=== PATIENT | male | born 1930 | race Caucasian/White ===

== ENCOUNTER → 2016-12-11 | Outpatient (CLI) | payer MEDICARE, BC, OTHER ==
[~2016-12-11] MED LIST: ASPI81TA45 PO; CITA20TA4 PO; COEN400C PO; LANTUSP SQ; LEVO.025 PO; LIVA1TAB PO; MAGN400 PO; MULT-65 PO; PRED20 PO; TRAD5TAB PO
[2016-12-11 11:56] LABS: AUTOMATED NEUTROPHIL # 3.8 TH/MM3 (1.8-7.7); BASOPHIL % 0.3 % (0.0-2.0); EOSINOPHIL # 0.1 TH/MM3 (0-0.4); EOSINOPHIL % 2.1 % (0.0-4.0); HEMATOCRIT 38.4 % (39.0-51.0); LYMPH % 27.2 % (9.0-44.0); LYMPHOCYTE # 1.7 TH/MM3 (1.0-4.8); MEAN CELL VOLUME 92.3 FL (80.0-100.0); MEAN CORPUSCULAR HEMOGLOBIN 30.6 PG (27.0-34.0); MEAN CORPUSCULAR HGB CONC 33.1 % (32.0-36.0); MONO % 9.2 % (0.0-8.0); NEUT % 61.2 % (16.0-70.0); PLATELET COUNT 181 TH/MM3 (150-450); RED BLOOD COUNT 4.16 MIL/MM3 (4.50-5.90); RED CELL DISTRIBUTION WIDTH 12.9 % (11.6-17.2); WHITE BLOOD COUNT 6.2 TH/MM3 (4.0-11.0)
[2016-12-11 12:00] LABS: HEMO FLAGS AUTO DIFF
[2016-12-11 12:41] LABS: ALT (GPT) 27 U/L (12-78); ANION GAP 7 MEQ/L (5-15); AST (GOT) 19 U/L (15-37); BICARBONATE 29.3 MEQ/L (21.0-32.0); BLOOD UREA NITROGEN 19 MG/DL (7-18); CHLORIDE 102 MEQ/L (98-107); GLOMERULAR FILTRATION RATE 63 ML/MIN (>89); GLUCOSE,FASTING 111 MG/DL (74-99); POTASSIUM 4.2 MEQ/L (3.5-5.1); SODIUM (NA) 138 MEQ/L (136-145)
[2016-12-11 12:45] LABS: SCAN/DIFF AUTO DIFF CONFIRMED
[2016-12-11 12:51] LABS: ALKALINE PHOSPHATASE 58 U/L (45-117); HDL CHOLESTEROL 42.4 MG/DL (40.0-60.0); LDL CHOLESTEROL 49 MG/DL (0-99); TOTAL BILIRUBIN ADULT 0.6 MG/DL (0.2-1.0)
[2016-12-11 18:40] LABS: HEMOGLOBIN A1a 1.3 %; HEMOGLOBIN A1b 1.7 %; HEMOGLOBIN Ao 84.1 %; HEMOGLOBIN LA1C 1.9 %; HEMOGLOBIN P3 3.8 %
== END ==
LOC: ELAB 08:37
PROVIDERS: ATTEND Family Medicine
DX: E03.8 Other specified hypothyroidism (principal); E11.65 Type 2 diabetes mellitus with hyperglycemia; E78.2 Mixed hyperlipidemia; I25.10 Atherosclerotic heart disease of native coronary artery without angina pectoris
CPT/HCPCS: 36415; 80053; 80061; 83036; 84443; 85025

== ENCOUNTER → 2017-03-19 | Outpatient (CLI) | payer MEDICARE, BC, OTHER ==
[2017-03-19 12:53] LABS: FREE T4 0.75 NG/DL (0.76-1.46)
== END ==
LOC: ELAB 10:08
PROVIDERS: ATTEND Family Medicine
DX: E03.8 Other specified hypothyroidism (principal)
CPT/HCPCS: 36415; 84439; 84443

== ENCOUNTER → 2017-06-09 | Outpatient (CLI) | payer MEDICARE, BC, OTHER ==
[2017-06-09 12:04] LABS: AUTOMATED NEUTROPHIL # 4.9 TH/MM3 (1.8-7.7); BASOPHIL % 0.2 % (0.0-2.0); EOSINOPHIL # 0.2 TH/MM3 (0-0.4); EOSINOPHIL % 2.4 % (0.0-4.0); HEMATOCRIT 37.4 % (39.0-51.0); HEMO FLAGS DIFF FINAL; LYMPH % 21.1 % (9.0-44.0); LYMPHOCYTE # 1.6 TH/MM3 (1.0-4.8); MEAN CELL VOLUME 93.3 FL (80.0-100.0); MEAN CORPUSCULAR HEMOGLOBIN 31.4 PG (27.0-34.0); MEAN CORPUSCULAR HGB CONC 33.7 % (32.0-36.0); NEUT % 66.3 % (16.0-70.0); PLATELET COUNT 172 TH/MM3 (150-450); RED BLOOD COUNT 4.01 MIL/MM3 (4.50-5.90); RED CELL DISTRIBUTION WIDTH 13.1 % (11.6-17.2); WHITE BLOOD COUNT 7.4 TH/MM3 (4.0-11.0)
[2017-06-09 12:26] LABS: ANION GAP 8 MEQ/L (5-15); AST (GOT) 16 U/L (15-37); BLOOD UREA NITROGEN 17 MG/DL (7-18); CHLORIDE 103 MEQ/L (98-107); GLOMERULAR FILTRATION RATE 60 ML/MIN (>89); GLUCOSE,FASTING 126 MG/DL (74-99); POTASSIUM 4.1 MEQ/L (3.5-5.1); SODIUM (NA) 138 MEQ/L (136-145)
[2017-06-09 12:36] LABS: ALKALINE PHOSPHATASE 57 U/L (45-117); ALT (GPT) 22 U/L (12-78); HDL CHOLESTEROL 40.7 MG/DL (40.0-60.0); LDL CHOLESTEROL 35 MG/DL (0-99); TOTAL BILIRUBIN ADULT 0.7 MG/DL (0.2-1.0)
[2017-06-09 12:49] LABS: HEMOGLOBIN A1a 1.7 %; HEMOGLOBIN A1b 1.7 %; HEMOGLOBIN Ao 83.4 %; HEMOGLOBIN LA1C 2.1 %
== END ==
LOC: ELAB 08:25
PROVIDERS: ATTEND Family Medicine
DX: F02.80 Dementia in other diseases classified elsewhere, unspecified severity, without behavioral disturbance, psychotic disturbance, mood disturbance, and anxiety (principal); E11.9 Type 2 diabetes mellitus without complications; E78.2 Mixed hyperlipidemia
CPT/HCPCS: 36415; 80053; 80061; 83036; 84443; 85025

== ENCOUNTER → 2017-12-09 | Outpatient (CLI) | payer MEDICARE, BC, OTHER ==
[2017-12-09 12:15] LABS: AUTOMATED NEUTROPHIL # 5.1 TH/MM3 (1.8-7.7); BASOPHIL % 0.6 % (0.0-2.0); EOSINOPHIL # 0.2 TH/MM3 (0-0.4); EOSINOPHIL % 2.7 % (0.0-4.0); HEMATOCRIT 37.7 % (39.0-51.0); HEMOGLOBIN 12.5 GM/DL (13.0-17.0); LYMPHOCYTE # 1.5 TH/MM3 (1.0-4.8); MEAN CELL VOLUME 93.3 FL (80.0-100.0); MEAN CORPUSCULAR HGB CONC 33.2 % (32.0-36.0); MEAN PLATELET VOLUME 8.7 FL (7.0-11.0); MONO % 10.4 % (0.0-8.0); MONOCYTE # 0.8 TH/MM3 (0-0.9); NEUT % 66.3 % (16.0-70.0); PLATELET COUNT 221 TH/MM3 (150-450); RED BLOOD COUNT 4.04 MIL/MM3 (4.50-5.90); RED CELL DISTRIBUTION WIDTH 13.6 % (11.6-17.2); WHITE BLOOD COUNT 7.6 TH/MM3 (4.0-11.0)
[2017-12-09 12:23] LABS: ALBUMIN 3.7 GM/DL (3.4-5.0); AST (GOT) 20 U/L (15-37); BICARBONATE 25.5 MEQ/L (21.0-32.0); BLOOD UREA NITROGEN 20 MG/DL (7-18); CALCIUM 9.3 MG/DL (8.5-10.1); CHLORIDE 105 MEQ/L (98-107); CREATININE 1.46 MG/DL (0.60-1.30); GLOMERULAR FILTRATION RATE 46 ML/MIN (>89); GLUCOSE,FASTING 139 MG/DL (74-99); SODIUM (NA) 141 MEQ/L (136-145)
[2017-12-09 12:24] LABS: ALT (GPT) 28 U/L (12-78); CHOLESTEROL 116 MG/DL (120-200)
[2017-12-09 12:34] LABS: ALKALINE PHOSPHATASE 74 U/L (45-117); CHOLESTEROL/ HDL RATIO 3.08 RATIO; HDL CHOLESTEROL 37.6 MG/DL (40.0-60.0); LDL CHOLESTEROL 62 MG/DL (0-99); TOTAL BILIRUBIN ADULT 0.3 MG/DL (0.2-1.0); TOTAL PROTEIN 7.6 GM/DL (6.4-8.2); TRIGLYCERIDES 84 MG/DL (42-150)
== END ==
LOC: ELAB 08:23
PROVIDERS: ATTEND Family Medicine
DX: E11.9 Type 2 diabetes mellitus without complications (principal); F02.80 Dementia in other diseases classified elsewhere, unspecified severity, without behavioral disturbance, psychotic disturbance, mood disturbance, and anxiety; R00.1 Bradycardia, unspecified; E03.8 Other specified hypothyroidism
CPT/HCPCS: 36415; 80053; 80061; 83036; 84443; 85025

== ENCOUNTER 2018-06-03 18:06 | Inpatient (IN) ==
[2018-06-03] MEDS ORDERED: Sod Chloride 0.9% Inj 1,000 ML IV.SIG ONE (18:38)
--- NOTE | 2018-06-03 19:01 | XR ---
EXAM DATE: 06/03/2018 6:53 PM EST AGE/SEX: 87 years / Male INDICATIONS: Dyspnea. CLINICAL DATA: This is the patient's initial encounter. Patient reports that signs and symptoms have been present for 1 day and indicates a pain score of Nonresponsive. MEDICAL/SURGICAL HISTORY: Non-responsive. Non-responsive. COMPARISON: POI, XR RIBS, RIGHT, 06/20/2016. . FINDINGS: A single AP view of the chest demonstrates the lungs to be symmetrically aerated without evidence of mass, infiltrate or effusion. The cardiomediastinal contours are unremarkable. Osseous structures a re intact. Patient is mildly rotated and there is overlying artifact from electrocardiogram leads. CONCLUSION: No acute cardiopulmonary disease. Electronically signed by: Azam Jones MD 06/03/2018 7:00 PM EST
--- NOTE | 2018-06-03 19:01 | ED ---
HPI General Chief complaint: Weakness Stated complaint: medical Time Seen by Provider: 06/03/18 18:38 History of Present Illness HPI narrative: 87-year-old male with history of dementia, diabetes, presents with his for evaluation of weakness and tachycardia. According to the who provides most of the history the patient today went to his regular aging group meeting. He returned home and was complaining of some weakness. He appeared pale. His checked his heart rate and it was elevated. Patient is currently complaining of generalized weakness, duration unknown. He is denying any headache, chest pain, shortness of breath, abdominal pain, nausea , vomiting, black or tarry stools, hematochezia. He takes a baby aspirin daily. He is not on any other blood thinning medications. He has had no recent illness. His reports that he has had a decreased appetite. No other complaints at this time. Related Data Home Medications Medication Instructions Recorded Confirmed Saccharomyces boulardii [Florastor] 250 mg PO HS 06/03/18 06/03/18 aspirin 81 mg PO QPM 06/03/18 06/03/18 bupropion HCl [Wellbutrin SR] 150 mg PO BID 06/03/18 06/03/18 calcium carbonate [Calcium 500] 500 mg PO DAILY 06/03/18 06/03/18 coenzyme Q10 [Co Q-10] 200 mg PO DAILY 06/03/18 06/03/18 ferrous sulfate [iron] 325 mg PO 3XW 06/03/18 06/03/18 insulin glargine [Lantus U-100 28 unit SUBCUT QAM 06/03/18 06/03/18 Insulin] linagliptin [Tradjenta] 5 mg PO DAILY 06/03/18 06/03/18 multivitamin 1 tab PO DAILY 06/03/18 06/03/18 omega 2-xzh-nrk-fish oil [[place]-3 1 cap PO DAILY 06/03/18 06/03/18 Fish Oil] omeprazole 20 mg PO DAILY 06/03/18 06/03/18 Allergies Allergy/AdvReac Type Severity Reaction Status Date / Time No Known Allergies Allergy Verified 06/03/18 18:28 Review of Systems ROS: all other systems reviewed are negative [facility] Medical History Medical History Dementia (Acute) Diabetes (Acute) Social History Social History Second Hand Smoke Exposure: No Smoking Status: Never smoker How Often Do You Have a Drink Containing Alcohol: Never Recent Travel in [facility] within the Last 8 Weeks: No Recent Out of Country Travel within the Last 8 Weeks: No Exam Narrative Exam Narrative: GENERAL: Pleasant well-developed well-nourished male in no acute distress. He appears pale. He is tachycardic. SKIN: Warm and dry. HEAD: Atraumatic. Normocephalic. EYES: Pupils equal and round. No scleral icterus. No injection or drainage. ENT: No nasal bleeding or discharge. Mucous membranes pink and moist. NECK: Trachea midline. No JVD. CARDIOVASCULAR: Regular rate and rhythm. No murmur appreciated. RESPIRATORY: No accessory muscle use. Clear to auscultation. Breath sounds equal bilaterally. GASTROINTESTINAL: Abdomen soft, tender to palpation in the left lower quadrant without guarding. Rectal examination reveals brown Hemoccult positive stool. MUSCULOSKELETAL: No obvious deformities. No clubbing. No cyanosis. No edema. NEUROLOGICAL: Awake and alert. No obvious cranial nerve deficits. Motor grossly within normal limits. Normal speech. PSYCHIATRIC: Appropriate mood and affect; insight and judgment normal. Procedures Hemaprompt Stool Procedural Steps Taken: specimen placed in appropriate test area, developer placed on specimen and control areas and controls appropriately positive and negative Hemaprompt Stool Result: positive Course Initial Documented Vital Signs Temperature 97.9 F 06/03/18 18:20 Pulse Rate 144 H 06/03/18 18:20 Respiratory Rate 15 06/03/18 18:20 Blood Pressure 97/54 L 06/03/18 18:20 Pulse Oximetry 96 06/03/18 18:20 Last Documented Vital Signs Temperature 97.9 F 06/03/18 18:20 Pulse Rate 138 H 06/03/18 20:55 Respiratory Rate 16 06/03/18 20:55 Blood Pressure 88/54 L 06/03/18 20:55 Pulse Oximetry 96 06/03/18 18:20 Medical Decision Making CARMEN Attestation CARMEN supervised visit: Yes Attestation: I, Dr. Hubbard, have reviewed the advance practice practitioner's documentation and am in agreement, met with the patient face to face, made the diagnosis, and the medical decision making was done by me. *My assessment and Findings: Patient seen and examined by me in addition to Jarred Peterson, 87-year-old male presents emergency department after an apparent near syncopal episode. He appears quite pale but his hemoglobin is within normal limits, somewhat hypotensive but alert and awake and is not requiring any pressors here in emerge department. After a liter and a half of normal saline bolus the patient's blood pressure and heart rate have not improved much. I reviewed his EKG and it appears to be flutter and is somewhat tachycardic in the 140s. 10 mg of Cardizem was given and the patient spontaneously converted to sinus rhythm at a rate of 68. Blood pressure still somewhat low. His troponin is mildly elevated. I think at this point the patient would do well for admission for near syncope workup with a mildly elevated troponin of 0.10. Given that he still mildly hypotensive but not requiring any pressors he would do well to go to ICU given his map is 62. Will discuss with the ship surveyor rotational moulding operator Patient also does have a positive Hemoccult. MDM Narrative Medical decision making narrative: The patient was placed on ECG monitoring pulse oximetry. He was given a liter of normal saline. Lab work, chest x-ray, CT abdomen pelvis ordered. EKG shows NSR, no ST elevation or depression, and no arrhythmias. No significant T-wave inversions. Reveals a tachyarrhythmia with a rate of 140, no apparent P waves. Regular rate. Lab work is been reviewed. On reexamination after 1 L normal saline hypotensive and tachycardic, therefore additional liter administered. At this point the patient was given 10 mg Cardizem and his heart rate improved to 60s and a repeat EKG reveals an underlying sinus rhythm with P waves present. Troponin is elevated at 0.1, may be related to rate. CT abdomen pelvis reveals no acute abnormalities. The patient's hemoglobin is currently stable but he does have a positive Hemoccult. At this point time the plan is to admit him for further treatment. Initially discussed with the ship surveyor Dr. Harman who recommends admission to the hospitalist service. Test with Dr. Pradhan is agreeable with admission. Medical Screen Exam Complete: Yes Emergency Medical Condition: Yes Differential Diagnosis Differential Diagnosis: Arrhythmia, sepsis, GI bleed, dehydration, electrolyte abnormality, orthostatic hypotension Lab Data Result diagrams: 06/03/18 18:35 06/03/18 18:35 Lab Results 06/03/18 06/03/18 06/03/18 Range/Units 18:35 18:35 18:35 WBC (4.0-11.0) th/mm3 RBC (4.50-5.90) mil/mm3 Hgb (13.0-17.0) gm/dL Hct (39.0-51.0) % MCV (80.0-100.0) fL MCH (27.0-34.0) pg MCHC (32.0-36.0) % RDW (11.6-17.2) % Plt Count (150-450) th/mm3 MPV (7.0-11.0) fL Neut % (Auto) (16.0-70.0) % Lymph % (Auto) (9.0-44.0) % [place] % (Auto) (0.0-8.0) % Eos % (Auto) (0.0-4.0) % Baso % (Auto) (0.0-2.0) % Neut # (Auto) (1.8-7.7) th/mm3 Lymph # (Auto) (1.0-4.8) th/mm3 [place] # (Auto) (0.0-0.9) th/mm3 Eos # (Auto) (0.0-0.4) th/mm3 Baso # (Auto) (0.0-0.2) th/mm3 WBC Differential Differential Comment PT 10.7 (9.8-11.6) sec INR 1.1 Ratio APTT 25.9 (23.4-31.7) sec Sodium (136-145) meq/L Potassium (3.5-5.1) meq/L Chloride (98-107) meq/L Carbon Dioxide (21.0-32.0) meq/L Anion Gap (5-15) meq/L BUN (7-18) mg/dL Creatinine (0.60-1.30) mg/dL Estimated GFR (>89) mL/min Random Glucose (74-106) mg/dL Lactic Acid (0.4-2.0) mmol/L Calcium (8.5-10.1) mg/dL Magnesium 2.1 (1.5-2.5) mg/dL Total Bilirubin (0.2-1.0) mg/dL AST (15-37) U/L ALT (12-78) U/L Alkaline Phosphatase (45-117) U/L Total Creatine Kinase 163 (39-308) U/L Troponin I (0.02-0.05) ng/mL Total Protein (6.4-8.2) g/dL Albumin (3.4-5.0) g/dL TSH (0.358-3.740) uIU/mL Blood Type A Positive Blood Type Recheck Required Antibody Screen Negative 06/03/18 06/03/18 06/03/18 Range/Units 18:35 18:35 18:35 WBC 10.6 (4.0-11.0) th/mm3 RBC 3.93 L (4.50-5.90) mil/mm3 Hgb 12.4 L (13.0-17.0) gm/dL Hct 37.2 L (39.0-51.0) % MCV 94.6 (80.0-100.0) fL MCH 31.6 (27.0-34.0) pg MCHC 33.4 (32.0-36.0) % RDW 13.7 (11.6-17.2) % Plt Count 186 (150-450) th/mm3 MPV 8.7 (7.0-11.0) fL Neut % (Auto) 76.4 H (16.0-70.0) % Lymph % (Auto) 14.5 (9.0-44.0) % [place] % (Auto) 7.7 (0.0-8.0) % Eos % (Auto) 1.3 (0.0-4.0) % Baso % (Auto) 0.1 (0.0-2.0) % Neut # (Auto) 8.1 H (1.8-7.7) th/mm3 Lymph # (Auto) 1.5 (1.0-4.8) th/mm3 [place] # (Auto) 0.8 (0.0-0.9) th/mm3 Eos # (Auto) 0.1 (0.0-0.4) th/mm3 Baso # (Auto) 0.0 (0.0-0.2) th/mm3 WBC Differential . Differential Comment Auto diff final PT (9.8-11.6) sec INR Ratio APTT (23.4-31.7) sec Sodium 134 L (136-145) meq/L Potassium 4.6 (3.5-5.1) meq/L Chloride 104 (98-107) meq/L Carbon Dioxide 22.8 (21.0-32.0) meq/L Anion Gap 7 (5-15) meq/L BUN 17 (7-18) mg/dL Creatinine 1.33 H (0.60-1.30) mg/dL Estimated GFR 51 L (>89) mL/min Random Glucose 137 H (74-106) mg/dL Lactic Acid 1.7 (0.4-2.0) mmol/L Calcium 8.1 L (8.5-10.1) mg/dL Magnesium (1.5-2.5) mg/dL Total Bilirubin 0.5 (0.2-1.0) mg/dL AST 27 (15-37) U/L ALT 21 (12-78) U/L Alkaline Phosphatase 62 (45-117) U/L Total Creatine Kinase (39-308) U/L Troponin I 0.10 H (0.02-0.05) ng/mL Total Protein 6.9 (6.4-8.2) g/dL Albumin 3.2 L (3.4-5.0) g/dL TSH (0.358-3.740) uIU/mL Blood Type Blood Type Recheck Antibody Screen 06/03/18 Range/Units 18:35 WBC (4.0-11.0) th/mm3 RBC (4.50-5.90) mil/mm3 Hgb (13.0-17.0) gm/dL Hct (39.0-51.0) % MCV (80.0-100.0) fL MCH (27.0-34.0) pg MCHC (32.0-36.0) % RDW (11.6-17.2) % Plt Count (150-450) th/mm3 MPV (7.0-11.0) fL Neut % (Auto) (16.0-70.0) % Lymph % (Auto) (9.0-44.0) % [place] % (Auto) (0.0-8.0) % Eos % (Auto) (0.0-4.0) % Baso % (Auto) (0.0-2.0) % Neut # (Auto) (1.8-7.7) th/mm3 Lymph # (Auto) (1.0-4.8) th/mm3 [place] # (Auto) (0.0-0.9) th/mm3 Eos # (Auto) (0.0-0.4) th/mm3 Baso # (Auto) (0.0-0.2) th/mm3 WBC Differential Differential Comment PT (9.8-11.6) sec INR Ratio APTT (23.4-31.7) sec Sodium (136-145) meq/L Potassium (3.5-5.1) meq/L Chloride (98-107) meq/L Carbon Dioxide (21.0-32.0) meq/L Anion Gap (5-15) meq/L BUN (7-18) mg/dL Creatinine (0.60-1.30) mg/dL Estimated GFR (>89) mL/min Random Glucose (74-106) mg/dL Lactic Acid (0.4-2.0) mmol/L Calcium (8.5-10.1) mg/dL Magnesium (1.5-2.5) mg/dL Total Bilirubin (0.2-1.0) mg/dL AST (15-37) U/L ALT (12-78) U/L Alkaline Phosphatase (45-117) U/L Total Creatine Kinase (39-308) U/L Troponin I (0.02-0.05) ng/mL Total Protein (6.4-8.2) g/dL Albumin (3.4-5.0) g/dL TSH 6.670 H (0.358-3.740) uIU/mL Blood Type Blood Type Recheck Antibody Screen Imaging Data Radiologist's impression: Chest X-Ray 06/03/18 18:38 CONCLUSION: No acute cardiopulmonary disease. Abdomen/Pelvis CT 06/03/18 19:02 CONCLUSION: 1. Unremarkable bowel gas pattern. 2. Status post cholecystectomy. Discharge Plan Discharge Disposition Patient Disposition: 30 Still Patient Discharge Condition Condition: Stable Discharge Details Diagnosis: Tachyarrhythmia, Elevated troponin, Near syncope, GI bleed Physicians Team ED Provider: Lexx Hubbard ED Midlevel Provider: Jarred Peterson Primary Care Provider: Tata Laguerre Rxs /Orders / Referrals /Forms Prescriptions: No Action multivitamin Tablet 1 tab PO DAILY RF: 0 bupropion HCl [Wellbutrin SR] 150 mg Tablet Sustained-Release 12 Hr 150 mg PO BID RF: 0 insulin glargine [Lantus U-100 Insulin] 100 unit/mL Solution 28 unit SUBCUT QAM RF: 0 aspirin 81 mg Tablet,Delayed Release (Dr/Ec) 81 mg PO QPM RF: 0 calcium carbonate [Calcium 500] 500 mg calcium (1,250 mg) Tablet 500 mg PO DAILY RF: 0 ferrous sulfate [iron] 325 mg (65 mg iron) Tablet 325 mg PO 3XW RF: 0 Saccharomyces boulardii [Florastor] 250 mg Capsule 250 mg PO HS RF: 0 coenzyme Q10 [Co Q-10] 200 mg Capsule 200 mg PO DAILY RF: 0 omeprazole 20 mg Tablet,Delayed Release (Dr/Ec) 20 mg PO DAILY RF: 0 omega 3-twq-exy-fish oil [[place]-3 Fish Oil] 910-1,400 mg Capsule 1 cap PO DAILY RF: 0 linagliptin [Tradjenta] 5 mg Tablet 5 mg PO DAILY RF: 0 Status ED Status: Admitted Patient
[2018-06-03 19:13] LABS: Baso % (Auto) 0.1 % (0.0-2.0); Eos # (Auto) 0.1 th/mm3 (0.0-0.4); Eos % (Auto) 1.3 % (0.0-4.0); Hematocrit 37.2 % (39.0-51.0); Hemoglobin 12.4 gm/dL (13.0-17.0); Lymph # (Auto) 1.5 th/mm3 (1.0-4.8); Lymph % (Auto) 14.5 % (9.0-44.0); Mean Corpuscular HGB Conc 33.4 % (32.0-36.0); Mean Corpuscular Hemoglobin 31.6 pg (27.0-34.0); Mean Corpuscular Volume 94.6 fL (80.0-100.0); Mean Platelet Volume 8.7 fL (7.0-11.0); Mono # (Auto) 0.8 th/mm3 (0.0-0.9); Mono % (Auto) 7.7 % (0.0-8.0); Neut # (Auto) 8.1 th/mm3 (1.8-7.7); Neut % (Auto) 76.4 % (16.0-70.0); Platelet Count 186 th/mm3 (150-450); Red Blood Count 3.93 mil/mm3 (4.50-5.90); Red Cell Distribution Width 13.7 % (11.6-17.2); White Blood Count 10.6 th/mm3 (4.0-11.0)
[2018-06-03] MEDS ORDERED: Sod Chloride 0.9% Inj 1,000 ML IV.SIG SCH ×2 (19:15→22:30)
[2018-06-03 19:24] LABS: Activated Partial Thrombo Time 25.9 sec (23.4-31.7); INR 1.1 Ratio; Prothrombin Time 10.7 sec (9.8-11.6)
[2018-06-03 19:36] LABS: Albumin 3.2 g/dL (3.4-5.0); Anion Gap 7 meq/L (5-15); Aspartate Aminotransferase 27 U/L (15-37); Blood Urea Nitrogen 17 mg/dL (7-18); Calcium 8.1 mg/dL (8.5-10.1); Carbon Dioxide 22.8 meq/L (21.0-32.0); Chloride 104 meq/L (98-107); Glomerular Filtration Rate 51 mL/min (>89); Glucose,Random 137 mg/dL (74-106); Magnesium 2.1 mg/dL (1.5-2.5); Potassium 4.6 meq/L (3.5-5.1); Sodium 134 meq/L (136-145)
[2018-06-03 19:39] LABS: Alanine Aminotransferase 21 U/L (12-78); Alkaline Phosphatase 62 U/L (45-117); Total Protein 6.9 g/dL (6.4-8.2)
--- NOTE | 2018-06-03 20:59 | CT ---
EXAM DATE: 06/03/2018 8:49 PM EST AGE/SEX: 87 years / Male INDICATIONS: Continuous belching. CLINICAL DATA: This is the patient's initial encounter. Patient reports that signs and symptoms have been present for 2 days and indicates a pain score of 0/10. MEDICAL/SURGICAL HISTORY: Diabetes. None. ORAL CONTRAST: No oral contrast ingested. RADIATION DOSE: 16.32 CTDI (mGy) COMPARISON: POI, CT ABDOMEN W/O CONTRAST, 06/27/2016. . TECHNIQUE: Multiple contiguous axial images were obtained through the abdomen and pelvis following b olus infusion of 90 ml Omnipaque 350 (iohexol) nonionic water-soluble contrast as a single exam dos e. No oral contrast ingested. Using automated exposure control and adjustment of the mA and/or kV ac cording to patient size, radiation dose was kept as low as reasonably achievable to obtain optimal di agnostic quality images. DICOM format image data is available electronically for review and comparis on. FINDINGS: Lower Lungs: The visualized lower lungs are clear. Liver: The liver has a homogeneous density without space-occupying lesion. There is no dilation of th e biliary tree. The patient is status post cholecystectomy. Spleen: Homogeneous density without enlargement. Pancreas: Unremarkable without mass or calcification. Kidneys: Normal in size and shape. No evidence of solid mass or hydronephrosis. There is a benign-ap pearing cyst in the right kidney. Adrenal Glands: Unremarkable. Aorta: The aorta and proximal iliac vessels are grossly unremarkable without aneurysmal dilation. Bowel/Mesentery: No oral contrast was given limiting the sensitivity. There is a moderate-sized air- fluid level in the stomach. Gas and stool is noted segmentally in the colon. There is no focal inflam matory change. Is no free air or fluid. Abdominal Wall: Intact. Retroperitoneum: No evidence of adenopathy in the retrocrural, para-aortic, or deep pelvic regions. Bladder: Contours are smooth. Reproductive Organs: No abnormal masses or calcifications seen. Inguinal: The inguinal region is unremarkable without evidence of adenopathy. Bony Structures: Unremarkable. CONCLUSION: 1. Unremarkable bowel gas pattern. 2. Status post cholecystectomy. Electronically signed by: Azam Jones MD 06/03/2018 8:58 PM EST
[2018-06-04 00:43] LABS: Bilirubin,Urine Negative (Negative); Clarity,Urine Clear (Clear); Color,Urine Yellow (Yellw/Straw); Glucose,Urine (UA) Negative (Negative); Leukocyte Esterase,Urine Negative (Negative); Nitrite,Urine Negative (Negative); Specific Gravity,Urine 1.021 (1.002-1.035)
[2018-06-04] MEDS ORDERED: Dextrose 50% in Water 50 ML Vial IV.PUSH PRN (01:37)
[2018-06-04] MEDS ORDERED: Acetaminophen 325 MG Tablet PO PRN (01:37)
[2018-06-04] MEDS ORDERED: Bisacodyl 10 MG Supp RECTAL PRN (01:37)
[2018-06-04 02:19] LABS: Baso # (Auto) 0.1 th/mm3 (0.0-0.2); Baso % (Auto) 0.6 % (0.0-2.0); Eos # (Auto) 0.1 th/mm3 (0.0-0.4); Eos % (Auto) 1.6 % (0.0-4.0); Hematocrit 32.2 % (39.0-51.0); Hemoglobin 10.9 gm/dL (13.0-17.0); Lymph # (Auto) 1.9 th/mm3 (1.0-4.8); Lymph % (Auto) 21.3 % (9.0-44.0); Mean Corpuscular HGB Conc 33.8 % (32.0-36.0); Mean Corpuscular Hemoglobin 32.1 pg (27.0-34.0); Mean Corpuscular Volume 94.8 fL (80.0-100.0); Mono # (Auto) 0.8 th/mm3 (0.0-0.9); Mono % (Auto) 8.9 % (0.0-8.0); Neut # (Auto) 6.1 th/mm3 (1.8-7.7); Neut % (Auto) 67.6 % (16.0-70.0); Platelet Count 190 th/mm3 (150-450); Red Cell Distribution Width 13.8 % (11.6-17.2)
[2018-06-04 02:31] LABS: Free T4 (Free Thyroxine) 0.81 ng/dL (0.76-1.46); Triiodothyronine (T3) Free 2.45 pg/mL (2.18-3.98)
[2018-06-04 02:48] LABS: Calcium 7.8 mg/dL (8.5-10.1); Carbon Dioxide 23.5 meq/L (21.0-32.0); Potassium 4.2 meq/L (3.5-5.1)
[2018-06-04 02:54] LABS: Troponin I 3.34 ng/mL (0.02-0.05)
[2018-06-04] MEDS ORDERED: Aspirin 325 MG Tablet PO ONE (03:25)
[2018-06-04] MEDS: Insulin NovoLOG Aspart Correctional Sugar Inj SQ SCH ×5 (04:15→20:38)
--- NOTE | 2018-06-04 04:21 | P.HP ---
History of Present Illness Service: [facility] Primary Care Physician: Ttaa Laguerre MD History of Present Illness: 87-year-old male with a past medical history significant for diabetes mellitus, dementia, ANTONI and hypertriglyceridemia presents to the emergency department for the evaluation of weakness and tachycardia. The patient's provides the history. She states that prior to dinner the patient was complaining of generalized weakness and he was unable to get up and walk to the dining [place]inez. She reports that he was tachycardic with a heart rate in the 140s, pale and weak. Patient denies any chest pain or shortness of breath. No abdominal pain. No nausea/vomiting/diarrhea. No focal neurologic deficits. No recent fever/chills. On arrival to the emergency department the patient was found to be in sinus tach with a heart rate of 140. He was given 1 dose of diltiazem x1 and was in normal sinus rhythm in the 60s at the time of our interview. Patient's initial troponin was 0.10, repeat 3.34. Repeat EKG showed normal sinus rhythm without ST segment elevations or depressions. Patient denies chest pain. In the emergency department the patient was weakly Hemoccult positive with brown stool. Inpatient Certification: I certify that the inpatient services were ordered in accordance with Medicare regulations governing the order. This includes certification that hospital inpatient services are reasonable and necessary and in the case of services not specified as inpatient-only under 42 CFR 419.22(n), that they are appropriately provided as inpatient services in accordance to with the 2-midnight benchmark under 43 CFR 412.3(e) Estimated Total Length of Stay (Days): 2 Plans for Post Hospital Care: Not yet determined Review of Systems All other systems reviewed negative except as stated [facility] - History History Provided By: Patient, Significant Other, Production Machine Operator / EMT - Medical History Medical History: Medical History (Last Updated 06/04/18 @ 04:15 by Sonya Pradhan MD) Dementia Diabetes Hypertriglyceridemia ANTONI (obstructive sleep apnea) - Surgical History Surgical History: Surgical History (Last Updated 06/04/18 @ 04:15 by Sonya Pradhan MD) History of appendectomy History of cholecystectomy - Family History Family History: Family History (Last Updated 06/04/18 @ 04:16 by Sonya Pradhan MD) Other Lung cancer - Tobacco History Second Hand Smoke Exposure: No Tobacco Use In Past 30 Days: No Smoking Status: Never smoker - Alcohol History How Often Do You Have a Drink Containing Alcohol: Never - Travel History Recent Travel in the [place] Within the Last 8 Weeks: No Recent Travel Out of the Country Within the Last 8 Weeks: No - Immunization History Tetanus Immunization: <5 Years Medications and Allergies Active Medications: Active Medications Acetaminophen (Tylenol) 650 mg PO Q4H PRN PRN Reason: Temp > 100.4 Al Hydroxide/Mg Hydroxide (Milk Of Magnesia Liq) 30 ml PO Q12H PRN PRN Reason: Mild Constipation Aspirin (Ecotrin) 81 mg PO QPM ROBERTA Bisacodyl (Dulcolax Supp) 10 mg RECTAL DAILY PRN PRN Reason: SEVERE CONSITIPATION Bupropion HCl (Wellbutrin Sr) 150 mg PO BID ROBERTA Calcium Carbonate (Oscal) 500 mg PO DAILY ROBERTA Dextrose (D50w Vial) 50 ml IV.PUSH UNSCH PRN PRN Reason: PER HYPOGLYCEMIA PROTOCOL Ferrous Sulfate (Ferosul) 325 mg PO MoWeFr@0900 ROBERTA Glucagon (Glucagon Inj) 1 mg OTHER PRN PRN PRN Reason: for Hypoglycemia Protocol Sodium Chloride (Ns Inj) 1,000 mls @ 70 mls/hr IV.CONT .[id number] ROBERTA Heparin Sodium/Dextrose (Heparin/D5w 25,000 U/250 Ml) 25,000 unit in 250 mls @ 9 mls/hr IV.CONT TITRATE PRN; Protocol PRN Reason: Per Protocol Insulin Aspart (Novolog Insulin Correctional Sugar Inj) 0 unit SQ ACHS AND 3AM ROBERTA; Protocol Lactulose (Lactulose Liq) 30 ml PO DAILY PRN PRN Reason: SEVERE CONSITIPATION Ondansetron HCl (Zofran Inj) 4 mg IV.PUSH Q6H PRN PRN Reason: NAUSEA OR VOMITING Pantoprazole Sodium (Protonix Inj) 40 mg IV.PUSH Q12H ROBERTA Senna/Docusate Sodium (Lakesha-Colace) 1 tab PO BID [facility] Sennosides (Senokot) 17.2 mg PO Q12H PRN PRN Reason: Moderate Constipation Sodium Chloride (Ns Flush) 2 ml IV.FLUSH BID ROBERTA Sodium Chloride (Ns Flush) 2 ml IV.FLUSH PRN PRN PRN Reason: FLUSH AFTER USING IV ACCESS Allergies Allergy/AdvReac Type Severity Reaction Status Date / Time No Known Allergies Allergy Verified 06/03/18 18:28 Home Medications Medication Instructions Recorded Confirmed Type Saccharomyces boulardii [Florastor] 250 mg PO HS 06/03/18 06/03/18 History aspirin 81 mg PO QPM 06/03/18 06/03/18 History bupropion HCl [Wellbutrin SR] 150 mg PO BID 06/03/18 06/03/18 History calcium carbonate [Calcium 500] 500 mg PO DAILY 06/03/18 06/03/18 History coenzyme Q10 [Co Q-10] 200 mg PO DAILY 06/03/18 06/03/18 History ferrous sulfate [iron] 325 mg PO 3XW 06/03/18 06/03/18 History insulin glargine [Lantus U-100 28 unit SUBCUT QAM 06/03/18 06/03/18 History Insulin] linagliptin [Tradjenta] 5 mg PO DAILY 06/03/18 06/03/18 History multivitamin 1 tab PO DAILY 06/03/18 06/03/18 History omega 0-agy-aci-fish oil [[place]-3 1 cap PO DAILY 06/03/18 06/03/18 History Fish Oil] omeprazole 20 mg PO DAILY 06/03/18 06/03/18 History Exam Vital signs: Vital Signs 06/03/18 18:20 06/03/18 19:15 06/03/18 19:30 Temperature 97.9 F Pulse Rate 144 H 136 H 138 H Respiratory Rate 15 16 16 Blood Pressure 97/54 L 87/58 L 88/54 L Pulse Oximetry 96 94 L 94 L 06/03/18 20:55 06/03/18 21:00 06/03/18 21:15 Temperature Pulse Rate 138 H 72 64 Respiratory Rate 16 14 Blood Pressure 88/54 L 84/51 L 84/51 L Pulse Oximetry 92 L 94 L 06/03/18 21:45 06/03/18 23:33 06/04/18 02:13 Temperature Pulse Rate 62 59 L 66 Respiratory Rate 14 16 16 Blood Pressure 85/50 L 89/50 L 93/55 L Pulse Oximetry 98 93 L 06/04/18 03:02 Temperature Pulse Rate 59 L Respiratory Rate 16 Blood Pressure 102/59 L Pulse Oximetry Intake & Output 06/03/18 06/03/18 06/04/18 06:59 18:59 06:59 Intake Total 3000 / 3000 Balance 3000 / 3000 Weight 74.389 kg Intake: IV 3000 / 3000 NS Inj 1,000 ML @ 1000 mls/hr 3000 / 3000 IV.SIG BOLUS ROBERTA Rx#:[id number] Narrative: Gen.: No acute distress Head: Normocephalic. Atraumatic. EENT: Pupils equal round and reactive to light. Nose without drainage. Airway intact. Throat without injection. Cardiovascular: Regular rate and rhythm. No murmurs, rubs or gallops. Respiratory: Lungs clear to auscultation bilaterally. No wheezes or rhonchi. Abdomen: Soft, nontender, nondistended. No peritoneal signs. Musculoskeletal: No gross deformities. No edema. Skin: No obvious rashes or erythema. Neuro: Sensory and motor grossly intact. Cranial nerves II through XII grossly intact. Results - Labs CBC & Chem 7: 06/04/18 02:07 06/04/18 02:07 Labs: Laboratory Results - last 24 hr 06/03/18 06/03/18 06/03/18 18:35 18:35 18:35 WBC RBC Hgb Hct MCV MCH MCHC RDW Plt Count MPV Neut % (Auto) Lymph % (Auto) [place] % (Auto) Eos % (Auto) Baso % (Auto) Neut # (Auto) Lymph # (Auto) [place] # (Auto) Eos # (Auto) Baso # (Auto) WBC Differential Differential Comment PT 10.7 INR 1.1 APTT 25.9 Sodium Potassium Chloride Carbon Dioxide Anion Gap BUN Creatinine Estimated GFR POC Glucose Random Glucose Lactic Acid Calcium Magnesium 2.1 Total Bilirubin AST ALT Alkaline Phosphatase Total Creatine Kinase 163 Troponin I Total Protein Albumin TSH Free T4 Free T3 Urine Color Urine Clarity Urine pH Ur Specific [place] Urine Protein Urine Glucose (UA) Urine Ketones Urine Occult Blood Urine Nitrate Urine Bilirubin Urine Urobilinogen Ur Leukocyte Esterase Urine RBC Urine WBC Micro UA Comment Ur Microscopic Review Urine Culture Comments Blood Type A Positive Blood Type Recheck Required Antibody Screen Negative 06/03/18 06/03/18 06/03/18 18:35 18:35 18:35 WBC 10.6 RBC 3.93 L Hgb 12.4 L Hct 37.2 L MCV 94.6 MCH 31.6 MCHC 33.4 RDW 13.7 Plt Count 186 MPV 8.7 Neut % (Auto) 76.4 H Lymph % (Auto) 14.5 [place] % (Auto) 7.7 Eos % (Auto) 1.3 Baso % (Auto) 0.1 Neut # (Auto) 8.1 H Lymph # (Auto) 1.5 [place] # (Auto) 0.8 Eos # (Auto) 0.1 Baso # (Auto) 0.0 WBC Differential . Differential Comment Auto diff final PT INR APTT Sodium 134 L Potassium 4.6 Chloride 104 Carbon Dioxide 22.8 Anion Gap 7 BUN 17 Creatinine 1.33 H Estimated GFR 51 L POC Glucose Random Glucose 137 H Lactic Acid 1.7 Calcium 8.1 L Magnesium Total Bilirubin 0.5 AST 27 ALT 21 Alkaline Phosphatase 62 Total Creatine Kinase Troponin I 0.10 H Total Protein 6.9 Albumin 3.2 L TSH Free T4 Free T3 Urine Color Urine Clarity Urine pH Ur Specific [place] Urine Protein Urine Glucose (UA) Urine Ketones Urine Occult Blood Urine Nitrate Urine Bilirubin Urine Urobilinogen Ur Leukocyte Esterase Urine RBC Urine WBC Micro UA Comment Ur Microscopic Review Urine Culture Comments Blood Type Blood Type Recheck Antibody Screen 06/03/18 06/03/18 06/04/18 18:35 18:35 00:32 WBC RBC Hgb Hct MCV MCH MCHC RDW Plt Count MPV Neut % (Auto) Lymph % (Auto) [place] % (Auto) Eos % (Auto) Baso % (Auto) Neut # (Auto) Lymph # (Auto) [place] # (Auto) Eos # (Auto) Baso # (Auto) WBC Differential Differential Comment PT INR APTT Sodium Potassium Chloride Carbon Dioxide Anion Gap BUN Creatinine Estimated GFR POC Glucose Random Glucose Lactic Acid Calcium Magnesium Total Bilirubin AST ALT Alkaline Phosphatase Total Creatine Kinase Troponin I Total Protein Albumin TSH 6.670 H Free T4 0.81 Free T3 2.45 Urine Color Yellow Urine Clarity Clear Urine pH 6.0 Ur Specific [place] 1.021 Urine Protein Negative Urine Glucose (UA) Negative Urine Ketones Negative Urine Occult Blood Negative Urine Nitrate Negative Urine Bilirubin Negative Urine Urobilinogen Less than 2 Ur Leukocyte Esterase Negative Urine RBC Less than 1 Urine WBC 1 Micro UA Comment Culture not ind Ur Microscopic Review Not Reportable Urine Culture Comments Culture not ind Blood Type Blood Type Recheck Antibody Screen 06/04/18 06/04/18 06/04/18 02:07 02:07 03:28 WBC 9.0 RBC 3.40 L Hgb 10.9 L Hct 32.2 L MCV 94.8 MCH 32.1 MCHC 33.8 RDW 13.8 Plt Count 190 MPV 9.0 Neut % (Auto) 67.6 Lymph % (Auto) 21.3 [place] % (Auto) 8.9 H Eos % (Auto) 1.6 Baso % (Auto) 0.6 Neut # (Auto) 6.1 Lymph # (Auto) 1.9 [place] # (Auto) 0.8 Eos # (Auto) 0.1 Baso # (Auto) 0.1 WBC Differential . Differential Comment Auto diff final PT INR APTT Sodium 139 Potassium 4.2 Chloride 108 H Carbon Dioxide 23.5 Anion Gap 8 BUN 16 Creatinine 1.15 Estimated GFR 60 L POC Glucose 94 Random Glucose 93 Lactic Acid Calcium 7.8 L Magnesium Total Bilirubin AST ALT Alkaline Phosphatase Total Creatine Kinase 241 Troponin I 3.34 H* Total Protein Albumin TSH Free T4 Free T3 Urine Color Urine Clarity Urine pH Ur Specific [place] Urine Protein Urine Glucose (UA) Urine Ketones Urine Occult Blood Urine Nitrate Urine Bilirubin Urine Urobilinogen Ur Leukocyte Esterase Urine RBC Urine WBC Micro UA Comment Ur Microscopic Review Urine Culture Comments Blood Type Blood Type Recheck Antibody Screen - Imaging Impressions Chest X-Ray 06/03/18 18:38 CONCLUSION: No acute cardiopulmonary disease. Abdomen/Pelvis CT 06/03/18 19:02 CONCLUSION: 1. Unremarkable bowel gas pattern. 2. Status post cholecystectomy. Caprini VTE Risk Assessment Caprini VTE Risk Assessment: Moderate/High Risk (score >= 2) Caprini Risk Assessment Model: Point Value = 1 Point Value = 2 Point Value = 3 Point Value = 5 Age 41-60 Minor surgery BMI > 25 kg/m2 Swollen legs Varicose veins or History of unexplained or recurrent spontaneous Oral contraceptives or hormone replacement Sepsis (< 1 month) Serious lung disease, including pneumonia (< 1 month) Abnormal pulmonary function Acute myocardial infarction Congestive heart failure (< 1 month) History of inflammatory bowel disease Medical patient at bed rest Age 61-74 Arthroscopic surgery Major open surgery (> 45 min) Laparoscopic surgery (> 45 min) Malignancy Confined to bed (> 72 hours) Immobilizing plaster cast Central venous access Age >= 75 History of VTE Family history of VTE Factor V Leiden Prothrombin [id number] Lupus anticoagulant Anticardiolipin antibodies Elevated serum homocysteine Heparin-induced thrombocytopenia Other congenital or acquired thrombophilia Stroke (< 1 month) Elective arthroplasty Hip, pelvis, or leg fracture Acute spinal cord injury (< 1 month) Prophylaxis Regimen: Total Risk Factor Score Risk Level Prophylaxis Regimen 0-1 Low Early ambulation 2 Moderate Order ONE of the following: *Sequential Compression Device (SCD) *Heparin 5000 units SQ BID 3-4 Higher Order ONE of the following medications: *Heparin 5000 units SQ TID *Enoxaparin/Lovenox 40 mg SQ daily (WT < 150 kg, CrCl > 30 mL/min) *Enoxaparin/Lovenox 30 mg SQ daily (WT < 150 kg, CrCl > 10-29 mL/min) *Enoxaparin/Lovenox 30 mg SQ BID (WT < 150 kg, CrCl > 30 mL/min) AND/OR *Sequential Compression Device (SCD) 5 or more Highest Order ONE of the following medications: *Heparin 5000 units SQ TID (Preferred with Epidurals) *Enoxaparin/Lovenox 40 mg SQ daily (WT < 150 kg, CrCl > 30 mL/min) *Enoxaparin/Lovenox 30 mg SQ daily (WT < 150 kg, CrCl > 10-29 mL/min) *Enoxaparin/Lovenox 30 mg SQ BID (WT < 150 kg, CrCl > 30 mL/min) AND *Sequential Compression Device (SCD) Assessment and Plan - Plan Assessment/plan: 1. Tachyarrhythmia/NSTEMI Initial troponin 0.10, repeat 3.34 EKG showed normal sinus rhythm without ST segment elevations or depressions, personally reviewed Heparin drip (without bolus as patient with Hemoccult positive and concern for GI bleed) Cardiology consulted, appreciate assistance 2. ? GI bleed Weakly Hemoccult positive in the ED No recent black tarry stools or coffee-ground emesis IV Protonix Serial H&H Type and screen Transfuse as needed Gastroenterology consulted, appreciate assistance 3. Diabetes mellitus Holding home Lantus as patient n.p.o. Sliding scale insulin Monitor blood glucose FEN N.p.o. Electrolytes: Urine replete as needed Heparin drip NS at 70 cc/hour
[2018-06-04] MEDS: Heparin Drip 25,000 UNIT/250 ML BAG IV.CONT PRN (04:34)
[2018-06-04] MEDS: Pantoprazole Inj 40 MG Vial IV.PUSH SCH ×2 (04:37→16:11)
--- NOTE | 2018-06-04 07:46 | P.CONCA ---
History of Present Illness Service: cardiology Consult date: 06/04/18 Reason for Consult: NSTEMI Primary Care Provider: Tata Laguerre MD Chief Complaint: waekness, tachycardia History of Present Illness: 87 yo M with dementia, DMII, sleep apnea and HLD presented with complaints of weakness and tachycardia. History obtained from charting as patient's not at bedside; patient poor historian due to dementia. Apparently patient became quite weak yesterday at home; heart rate checked by was 140bpm. In the ED he was found to be in sinus tachycardia HR 144bpm. IV diltiazem x 1 dose with return to normal rate. EKG is non-ischemic. Troponin level initially 0.10 which increased to 3.34. He denies chest pain, sob or palpitations. Patient's hemoccult also weakly positive and being investigated, Hgb 10.9. Review of Systems All other systems reviewed negative except as stated in HPI PMF[facility] - History History Provided By: Patient, Significant Other, Senior Government Program Analyst / EMT - Medical History Medical History: Medical History (Last Updated 06/04/18 @ 04:15 by Sonya Pradhan MD) Dementia Diabetes Hypertriglyceridemia ANTONI (obstructive sleep apnea) - Surgical History Surgical History: Surgical History (Last Updated 06/04/18 @ 04:15 by Sonya Pradhan MD) History of appendectomy History of cholecystectomy - Family History Family History: Family History (Last Updated 06/04/18 @ 04:16 by Sonya Pradhan MD) Other Lung cancer - Tobacco History Second Hand Smoke Exposure: No Tobacco Use In Past 30 Days: No Smoking Status: Never smoker - Alcohol History How Often Do You Have a Drink Containing Alcohol: Never - Travel History Recent Travel in the [place] Within the Last 8 Weeks: No Recent Travel Out of the Country Within the Last 8 Weeks: No - Immunization History Tetanus Immunization: <5 Years Medications and Allergies Active Medications: Active Medications Acetaminophen (Tylenol) 650 mg PO Q4H PRN PRN Reason: Temp > 100.4 Al Hydroxide/Mg Hydroxide (Milk Of Magnesia Liq) 30 ml PO Q12H PRN PRN Reason: Mild Constipation Aspirin (Ecotrin) 81 mg PO QPM ROBERTA Bisacodyl (Dulcolax Supp) 10 mg RECTAL DAILY PRN PRN Reason: SEVERE CONSITIPATION Bupropion HCl (Wellbutrin Sr) 150 mg PO BID [facility] Calcium Carbonate (Oscal) 500 mg PO DAILY [facility] Dextrose (D50w Vial) 50 ml IV.PUSH UNSCH PRN PRN Reason: PER HYPOGLYCEMIA PROTOCOL Ferrous Sulfate (Ferosul) 325 mg PO MoWeFr@0900 [facility] Glucagon (Glucagon Inj) 1 mg OTHER PRN PRN PRN Reason: for Hypoglycemia Protocol Sodium Chloride (Ns Inj) 1,000 mls @ 70 mls/hr IV.CONT .[id number] [facility] Heparin Sodium/Dextrose (Heparin/D5w 25,000 U/250 Ml) 25,000 unit in 250 mls @ 9 mls/hr IV.CONT TITRATE PRN; Protocol PRN Reason: Per Protocol Last Admin: 06/04/18 04:34 Dose: 900 units/hr, 9 mls/hr Insulin Aspart (Novolog Insulin Correctional Sugar Inj) 0 unit SQ ACHS AND 3AM ROBERTA; Protocol Last Admin: 06/04/18 04:15 Dose: Not Given Lactulose (Lactulose Liq) 30 ml PO DAILY PRN PRN Reason: SEVERE CONSITIPATION Ondansetron HCl (Zofran Inj) 4 mg IV.PUSH Q6H PRN PRN Reason: NAUSEA OR VOMITING Pantoprazole Sodium (Protonix Inj) 40 mg IV.PUSH Q12H [facility] Last Admin: 06/04/18 04:37 Dose: 40 mg Senna/Docusate Sodium (Lakesha-Colace) 1 tab PO BID [facility] Sennosides (Senokot) 17.2 mg PO Q12H PRN PRN Reason: Moderate Constipation Sodium Chloride (Ns Flush) 2 ml IV.FLUSH BID [facility] Sodium Chloride (Ns Flush) 2 ml IV.FLUSH PRN PRN PRN Reason: FLUSH AFTER USING IV ACCESS Allergies Allergy/AdvReac Type Severity Reaction Status Date / Time No Known Allergies Allergy Verified 06/03/18 18:28 Home Medications Medication Instructions Recorded Confirmed Type Saccharomyces boulardii [Florastor] 250 mg PO HS 06/03/18 06/03/18 History aspirin 81 mg PO QPM 06/03/18 06/03/18 History bupropion HCl [Wellbutrin SR] 150 mg PO BID 06/03/18 06/03/18 History calcium carbonate [Calcium 500] 500 mg PO DAILY 06/03/18 06/03/18 History coenzyme Q10 [Co Q-10] 200 mg PO DAILY 06/03/18 06/03/18 History ferrous sulfate [iron] 325 mg PO 3XW 06/03/18 06/03/18 History insulin glargine [Lantus U-100 28 unit SUBCUT QAM 06/03/18 06/03/18 History Insulin] linagliptin [Tradjenta] 5 mg PO DAILY 06/03/18 06/03/18 History multivitamin 1 tab PO DAILY 06/03/18 06/03/18 History omega 4-byp-jik-fish oil [[place]-3 1 cap PO DAILY 06/03/18 06/03/18 History Fish Oil] omeprazole 20 mg PO DAILY 06/03/18 06/03/18 History Exam Vital signs: Vital Signs 06/03/18 18:20 06/03/18 19:15 06/03/18 19:30 Temperature 97.9 F Pulse Rate 144 H 136 H 138 H Respiratory Rate 15 16 16 Blood Pressure 97/54 L 87/58 L 88/54 L Pulse Oximetry 96 94 L 94 L 06/03/18 20:55 06/03/18 21:00 06/03/18 21:15 Temperature Pulse Rate 138 H 72 64 Respiratory Rate 16 14 Blood Pressure 88/54 L 84/51 L 84/51 L Pulse Oximetry 92 L 94 L 06/03/18 21:45 06/03/18 23:33 06/04/18 02:13 Temperature Pulse Rate 62 59 L 66 Respiratory Rate 14 16 16 Blood Pressure 85/50 L 89/50 L 93/55 L Pulse Oximetry 98 93 L 06/04/18 03:02 06/04/18 04:38 Temperature Pulse Rate 59 L 63 Respiratory Rate 16 16 Blood Pressure 102/59 L 137/71 Pulse Oximetry 95 Intake & Output 06/03/18 06/04/18 06/04/18 18:59 06:59 18:59 Intake Total 3000 / 3000 Balance 3000 / 3000 Weight 74.389 kg Intake: IV 3000 / 3000 NS Inj 1,000 ML @ 1000 mls/hr 3000 / 3000 IV.SIG BOLUS [facility] Rx#:[id number] Narrative: GENERAL: SKIN: Warm and dry. HEAD: Normocephalic. EYES: No scleral icterus. No injection or drainage. NECK: Supple, trachea midline. No JVD or lymphadenopathy. CARDIOVASCULAR: Regular rate and rhythm without murmurs, gallops, or rubs. RESPIRATORY: Breath sounds equal bilaterally. No accessory muscle use. GASTROINTESTINAL: Abdomen soft, non-tender, nondistended. MUSCULOSKELETAL: No cyanosis, or edema. Results 06/04/18 02:07 06/04/18 02:07 Cardiac Enzymes 06/03/18 06/04/18 Range/Units 18:35 02:07 AST 27 (15-37) U/L Troponin I 0.10 H 3.34 H* (0.02-0.05) ng/mL Coagulation 06/03/18 Range/Units 18:35 PT 10.7 (9.8-11.6) sec APTT 25.9 (23.4-31.7) sec CBC 06/03/18 06/04/18 Range/Units 18:35 02:07 WBC 10.6 9.0 (4.0-11.0) th/mm3 RBC 3.93 L 3.40 L (4.50-5.90) mil/mm3 Hgb 12.4 L 10.9 L (13.0-17.0) gm/dL Hct 37.2 L 32.2 L (39.0-51.0) % Plt Count 186 190 (150-450) th/mm3 Neut # (Auto) 8.1 H 6.1 (1.8-7.7) th/mm3 Lymph # (Auto) 1.5 1.9 (1.0-4.8) th/mm3 [place] # (Auto) 0.8 0.8 (0.0-0.9) th/mm3 Eos # (Auto) 0.1 0.1 (0.0-0.4) th/mm3 Baso # (Auto) 0.0 0.1 (0.0-0.2) th/mm3 Comprehensive Metabolic Panel 06/03/18 06/04/18 Range/Units 18:35 02:07 Sodium 134 L 139 (136-145) meq/L Potassium 4.6 4.2 (3.5-5.1) meq/L Chloride 104 108 H (98-107) meq/L Carbon Dioxide 22.8 23.5 (21.0-32.0) meq/L BUN 17 16 (7-18) mg/dL Creatinine 1.33 H 1.15 (0.60-1.30) mg/dL Calcium 8.1 L 7.8 L (8.5-10.1) mg/dL AST 27 (15-37) U/L ALT 21 (12-78) U/L Alkaline Phosphatase 62 (45-117) U/L Total Protein 6.9 (6.4-8.2) g/dL Albumin 3.2 L (3.4-5.0) g/dL Intake and Output 06/03/18 06/04/18 06/04/18 22:59 06:59 14:59 Intake Total 1999 1000 / 1000 Balance 1999 1000 / 1000 Intake: IV 1999 1000 / 1000 NS Inj 1,000 ML @ 1000 mls/hr 1999 1000 / 1000 IV.SIG BOLUS [facility]ERTA Rx#:[id number] Other: Weight 74.389 kg - Imaging and Cardiology Imaging: Impressions Chest X-Ray 06/03/18 18:38 CONCLUSION: No acute cardiopulmonary disease. Abdomen/Pelvis CT 06/03/18 19:02 CONCLUSION: 1. Unremarkable bowel gas pattern. 2. Status post cholecystectomy. Assessment and Plan - Plan 87 yo M with dementia, DMII, sleep apnea and HLD presented with complaints of weakness and tachycardia. History obtained from charting as patient's not at bedside; patient poor historian due to dementia. Apparently patient became quite weak yesterday at home; heart rate checked by was 140bpm. In the ED he was found to be in sinus tachycardia HR 144bpm. IV diltiazem x 1 dose with return to normal rate. EKG is non-ischemic. Troponin level initially 0.10 which increased to 3.34. He denies chest pain, sob or palpitations. Patient's Hemoccult also weakly positive and being investigated, Hgb 10.9. NSTEMI- EKG nonischemic, no chest pain. will continue to monitor troponin trend. due to dementia will likely medically manage and pursue any cardiac intervention at this time. troponin elevation may also be demand mediated secondary to sinus tach vs. anemia.
[2018-06-04 08:03] LABS: Troponin I 4.79 ng/mL (0.02-0.05)
[2018-06-04] MEDS: Sod Chloride 0.9% Inj 1,000 ML IV.CONT SCH ×2 (08:10→16:16)
[2018-06-04 08:20] LABS: Hematocrit 34.9 % (39.0-51.0); Hemoglobin 11.9 gm/dL (13.0-17.0)
[2018-06-04 08:29] LABS: Activated Partial Thrombo Time 42.1 sec (23.4-31.7); INR 1.1 Ratio; Prothrombin Time 11.4 sec (9.8-11.6)
[2018-06-04] MEDS ORDERED: Pantoprazole Sodium 20 MG DR Tablet PO SCH (09:00)
[2018-06-04] MEDS ORDERED: Heparin - SQ 10,000 UNITS/ML Vial SQ SCH (09:00)
[2018-06-04] MEDS: Senna/Docusate Sodium 8.6/50 MG Tablet PO SCH ×2 (09:51→20:40)
[2018-06-04] MEDS: Calcium Carbonate 500 MG Tablet PO SCH (09:51)
[2018-06-04] MEDS: buPROPion 150 MG 12 HR Tablet PO SCH ×2 (09:52→20:39)
--- NOTE | 2018-06-04 12:11 | ECG ---
Date Performed: 06/04/2018 Time Performed: 02:01:50 PTAGE: 87 years EKG: Sinus rhythm NONSPECIFIC T-WAVE ABNORMALITY BORDERLINE ECG Since the PREVIOUS TRACING , no significant change noted PREVIOUS TRACIN06/03/2018 21.14 DOCTOR: Jeff Wallis Interpretating Date/Time 06/04/2018 12:10:02
--- NOTE | 2018-06-04 12:46 | P.CONGI ---
History of Present Illness Consult date: 06/04/18 Consult reason: Heme positive stool Concern for GI bleeding Chief complaint: Tachyarrhythmia/Hypotension/Near Syncope/GI Bleed History of Present Illness: This is an 87-year-old male patient with a past medical history significant for dementia, diabetes, hyper triglycerides and obstructive sleep apnea. Patient was brought to the emergency room for evaluation of tachycardia and generalized weakness. His is present in the room at this time and is providing information to compile history of present illness. Spouse reports patient became pale with an increased heart rate and generalized weakness over the last 24 hours. States he became nauseated and lethargic. She states she is unsure if his stools have been black or dark in color. She reports last EGD was done 2 years ago which revealed Steen's esophagus. She denies any noted difficulty swallowing or pain with swallowing. Of note, patient's troponin noted to be elevated at 4.79. Patient currently on heparin infusion awaiting cardiology consult. Hemoglobin 11.9 hematocrit 34.9 She endorses last colonoscopy done 2 years ago where polyps were removed and noted to be benign per her recollection. She denies patient use of tobacco or alcohol products. She denies any known family history of gastrointestinal disorders. And states patient has continued to deny any nausea vomiting or abdominal pain. Our service has been consulted to evaluate patient for heme positive stool concerning for GI bleeding. <Ashely Valle - Last Filed: 06/04/18 12:37> Review of Systems unobtainable due to mental status, other <Ashely Valle - Last Filed: 06/04/18 12:37> [facility] - History History Provided By: Patient, Significant Other, Rn Urgent Care / EMT - Medical History Medical History: Medical History (Last Reviewed 06/04/18 @ 08:49 by Charlie Pinon) Dementia Diabetes Hypertriglyceridemia ANTONI (obstructive sleep apnea) - Surgical History Surgical History: Surgical History (Last Reviewed 06/04/18 @ 08:49 by Charlie Pinon) History of appendectomy History of cholecystectomy - Family History Family History: Family History (Last Updated 06/04/18 @ 04:16 by Sonya Pradhan MD) Other Lung cancer - Tobacco History Second Hand Smoke Exposure: No Tobacco Use In Past 30 Days: No Smoking Status: Never smoker - Alcohol History How Often Do You Have a Drink Containing Alcohol: Never - Travel History Recent Travel in the [place] Within the Last 8 Weeks: No Recent Travel Out of the Country Within the Last 8 Weeks: No - Immunization History Tetanus Immunization: <5 Years <Ashely Valle - Last Filed: 06/04/18 12:37> - Medical History Medical History: Medical History (Last Reviewed 06/04/18 @ 08:49 by Charlie Pinon) Dementia Diabetes Hypertriglyceridemia ANTONI (obstructive sleep apnea) - Surgical History Surgical History: Surgical History (Last Reviewed 06/04/18 @ 08:49 by Charlie Pinon) History of appendectomy History of cholecystectomy - Family History Family History: Family History (Last Updated 06/04/18 @ 04:16 by Sonya Pradhan MD) Other Lung cancer <Maricruz Tyler - Last Filed: 06/04/18 16:54> Medications and Allergies Active Medications: Active Medications Acetaminophen (Tylenol) 650 mg PO Q4H PRN PRN Reason: Temp > 100.4 Al Hydroxide/Mg Hydroxide (Milk Of Sha Packer) 30 ml PO Q12H PRN PRN Reason: Mild Constipation Aspirin (Ecotrin) 81 mg PO QPM [facility] Bisacodyl (Dulcolax Supp) 10 mg RECTAL DAILY PRN PRN Reason: SEVERE CONSITIPATION Bupropion HCl (Wellbutrin Sr) 150 mg PO BID [facility] Last Admin: 06/04/18 09:52 Dose: 150 mg Calcium Carbonate (Oscal) 500 mg PO DAILY [facility] Last Admin: 06/04/18 09:51 Dose: 500 mg Dextrose (D50w Vial) 50 ml IV.PUSH UNSCH PRN PRN Reason: PER HYPOGLYCEMIA PROTOCOL Ferrous Sulfate (Ferosul) 325 mg PO MoWeFr@0900 [facility] Glucagon (Glucagon Inj) 1 mg OTHER PRN PRN PRN Reason: for Hypoglycemia Protocol Sodium Chloride (Ns Inj) 1,000 mls @ 70 mls/hr IV.CONT .[id number] [facility] Last Admin: 06/04/18 08:10 Dose: 70 mls/hr Heparin Sodium/Dextrose (Heparin/D5w 25,000 U/250 Ml) 25,000 unit in 250 mls @ 9 mls/hr IV.CONT TITRATE PRN; Protocol PRN Reason: Per Protocol Last Admin: 06/04/18 04:34 Dose: 900 units/hr, 9 mls/hr Insulin Aspart (Novolog Insulin Correctional Sugar Inj) 0 unit SQ ACHS AND 3AM ROBERTA; Protocol Last Admin: 06/04/18 12:24 Dose: Not Given Lactulose (Lactulose Liq) 30 ml PO DAILY PRN PRN Reason: SEVERE CONSITIPATION Ondansetron HCl (Zofran Inj) 4 mg IV.PUSH Q6H PRN PRN Reason: NAUSEA OR VOMITING Pantoprazole Sodium (Protonix Inj) 40 mg IV.PUSH Q12H [facility] Last Admin: 06/04/18 04:37 Dose: 40 mg Senna/Docusate Sodium (Lakesha-Colace) 1 tab PO BID [facility] Last Admin: 06/04/18 09:51 Dose: 1 tab Sennosides (Senokot) 17.2 mg PO Q12H PRN PRN Reason: Moderate Constipation Sodium Chloride (Ns Flush) 2 ml IV.FLUSH BID [facility] Last Admin: 06/04/18 09:10 Dose: Not Given Sodium Chloride (Ns Flush) 2 ml IV.FLUSH PRN PRN PRN Reason: FLUSH AFTER USING IV ACCESS <Ashely Valle - Last Filed: 06/04/18 12:37> Active Medications: Active Medications Acetaminophen (Tylenol) 650 mg PO Q4H PRN PRN Reason: Temp > 100.4 Al Hydroxide/Mg Hydroxide (Milk Of Magnesia Liq) 30 ml PO Q12H PRN PRN Reason: Mild Constipation Aspirin (Ecotrin) 81 mg PO QPM [facility] Bisacodyl (Dulcolax Supp) 10 mg RECTAL DAILY PRN PRN Reason: SEVERE CONSITIPATION Bupropion HCl (Wellbutrin Sr) 150 mg PO BID [facility] Last Admin: 06/04/18 09:52 Dose: 150 mg Calcium Carbonate (Oscal) 500 mg PO DAILY [facility] Last Admin: 06/04/18 09:51 Dose: 500 mg Dextrose (D50w Vial) 50 ml IV.PUSH UNSCH PRN PRN Reason: PER HYPOGLYCEMIA PROTOCOL Ferrous Sulfate (Ferosul) 325 mg PO MoWeFr@0900 [facility] Glucagon (Glucagon Inj) 1 mg OTHER PRN PRN PRN Reason: for Hypoglycemia Protocol Sodium Chloride (Ns Inj) 1,000 mls @ 70 mls/hr IV.CONT .[id number] [facility] Last Admin: 06/04/18 16:16 Dose: Not Given Heparin Sodium/Dextrose (Heparin/D5w 25,000 U/250 Ml) 25,000 unit in 250 mls @ 9 mls/hr IV.CONT TITRATE PRN; Protocol PRN Reason: Per Protocol Last Admin: 06/04/18 04:34 Dose: 900 units/hr, 9 mls/hr Insulin Aspart (Novolog Insulin Correctional Sugar Inj) 0 unit SQ ACHS AND 3AM ROBERTA; Protocol Last Admin: 06/04/18 12:24 Dose: Not Given Lactulose (Lactulose Liq) 30 ml PO DAILY PRN PRN Reason: SEVERE CONSITIPATION Multivitamins (Theragran) 1 tab PO DAILY [facility] Ondansetron HCl (Zofran Inj) 4 mg IV.PUSH Q6H PRN PRN Reason: NAUSEA OR VOMITING Pantoprazole Sodium (Protonix Inj) 40 mg IV.PUSH Q12H [facility] Last Admin: 06/04/18 16:11 Dose: 40 mg Ptownmed ( Saccharomyces Boulardii [Florastor ] 250 Mg) 0 each PO HS [facility] Senna/Docusate Sodium (Lakesha-Colace) 1 tab PO BID [facility] Last Admin: 06/04/18 09:51 Dose: 1 tab Sennosides (Senokot) 17.2 mg PO Q12H PRN PRN Reason: Moderate Constipation Sodium Chloride (Ns Flush) 2 ml IV.FLUSH BID [facility] Last Admin: 06/04/18 09:10 Dose: Not Given Sodium Chloride (Ns Flush) 2 ml IV.FLUSH PRN PRN PRN Reason: FLUSH AFTER USING IV ACCESS <Maricruz Tyler - Last Filed: 06/04/18 16:54> Allergies Allergy/AdvReac Type Severity Reaction Status Date / Time No Known Allergies Allergy Verified 06/03/18 18:28 Home Medications Medication Instructions Recorded Confirmed Type Saccharomyces boulardii [Florastor] 250 mg PO HS 06/03/18 06/03/18 History aspirin 81 mg PO QPM 06/03/18 06/03/18 History bupropion HCl [Wellbutrin SR] 150 mg PO BID 06/03/18 06/03/18 History calcium carbonate [Calcium 500] 500 mg PO DAILY 06/03/18 06/03/18 History coenzyme Q10 [Co Q-10] 200 mg PO DAILY 06/03/18 06/03/18 History ferrous sulfate [iron] 325 mg PO 3XW 06/03/18 06/03/18 History insulin glargine [Lantus U-100 28 unit SUBCUT QAM 06/03/18 06/03/18 History Insulin] linagliptin [Tradjenta] 5 mg PO DAILY 06/03/18 06/03/18 History multivitamin 1 tab PO DAILY 06/03/18 06/03/18 History omega [id number] oil [[place]-3 1 cap PO DAILY 06/03/18 06/03/18 History Fish Oil] omeprazole 20 mg PO DAILY 06/03/18 06/03/18 History Exam Vital signs: Vital Signs 06/03/18 18:20 06/03/18 18:39 06/03/18 19:15 Temperature 97.9 F Pulse Rate 144 H 59 L 136 H Respiratory Rate 15 16 Blood Pressure 97/54 L 87/58 L Pulse Oximetry 96 94 L 06/03/18 19:30 06/03/18 20:55 06/03/18 21:00 Temperature Pulse Rate 138 H 138 H 72 Respiratory Rate 16 16 14 Blood Pressure 88/54 L 88/54 L 84/51 L Pulse Oximetry 94 L 92 L 06/03/18 21:15 06/03/18 21:45 06/03/18 23:33 Temperature Pulse Rate 64 62 59 L Respiratory Rate 14 16 Blood Pressure 84/51 L 85/50 L 89/50 L Pulse Oximetry 94 L 98 93 L 06/04/18 02:13 06/04/18 03:02 06/04/18 04:38 Temperature Pulse Rate 66 59 L 63 Respiratory Rate 16 16 16 Blood Pressure 93/55 L 102/59 L 137/71 Pulse Oximetry 95 06/04/18 07:00 06/04/18 08:20 06/04/18 08:49 Temperature 97.9 F 98.1 F Pulse Rate 59 L 57 L 64 Respiratory Rate 18 19 Blood Pressure 105/56 L 118/63 Pulse Oximetry 96 95 98 06/04/18 10:30 06/04/18 12:00 Temperature 97.8 F 97.8 F Pulse Rate 59 L 58 L Respiratory Rate 17 18 Blood Pressure 102/67 102/60 Pulse Oximetry 97 97 Intake & Output 06/03/18 06/04/18 06/04/18 18:59 06:59 18:59 Intake Total 3000 / 3000 Output Total 950 / 950 Balance 3000 / 3000 -950 / -950 Weight 74.389 kg Intake: IV 3000 / 3000 NS Inj 1,000 ML @ 1000 mls/hr 3000 / 3000 IV.SIG BOLUS ROBERTA Rx#:[id number] Output: Urine 950 / 950 Other: # Voids 3 - Constitutional no acute distress, chronically ill appearing - Routine HEENT Exam Head: Present: normocephalic - Routine Respiratory Exam Present: CTA bilaterally. Absent: accessory muscle use - Routine Cardiovascular Exam Present: RRR - Routine Abdominal Exam Present: soft, normoactive bowel sounds. Absent: tenderness, distended, guarding, firm - Routine Extremities Exam Absent: edema - Routine Skin Exam Present: dry, warm. Absent: pallor - Routine Neurological Exam Present: alert, altered mental status <Valle,Ashely - Last Filed: 06/04/18 12:37> Vital signs: Vital Signs 06/03/18 18:20 06/03/18 18:39 06/03/18 19:15 Temperature 97.9 F Pulse Rate 144 H 59 L 136 H Respiratory Rate 15 16 Blood Pressure 97/54 L 87/58 L Pulse Oximetry 96 94 L 06/03/18 19:30 06/03/18 20:55 06/03/18 21:00 Temperature Pulse Rate 138 H 138 H 72 Respiratory Rate 16 16 14 Blood Pressure 88/54 L 88/54 L 84/51 L Pulse Oximetry 94 L 92 L 06/03/18 21:15 06/03/18 21:45 06/03/18 23:33 Temperature Pulse Rate 64 62 59 L Respiratory Rate 14 16 Blood Pressure 84/51 L 85/50 L 89/50 L Pulse Oximetry 94 L 98 93 L 06/04/18 02:13 06/04/18 03:02 06/04/18 04:38 Temperature Pulse Rate 66 59 L 63 Respiratory Rate 16 16 16 Blood Pressure 93/55 L 102/59 L 137/71 Pulse Oximetry 95 06/04/18 07:00 06/04/18 08:20 06/04/18 08:49 Temperature 97.9 F 98.1 F Pulse Rate 59 L 57 L 64 Respiratory Rate 18 19 Blood Pressure 105/56 L 118/63 Pulse Oximetry 96 95 98 06/04/18 10:30 06/04/18 12:00 06/04/18 13:39 Temperature 97.8 F 97.8 F 97.8 F Pulse Rate 59 L 58 L 67 Respiratory Rate 17 18 17 Blood Pressure 102/67 102/60 113/64 Pulse Oximetry 97 97 98 06/04/18 16:05 Temperature 97.7 F Pulse Rate 65 Respiratory Rate 16 Blood Pressure 124/60 Pulse Oximetry 97 Intake & Output 06/03/18 06/04/18 06/04/18 18:59 06:59 18:59 Intake Total 3000 / 3000 Output Total 1450 / 1450 Balance 3000 / 3000 -1450 / -1450 Weight 74.389 kg Intake: IV 3000 / 3000 NS Inj 1,000 ML @ 1000 mls/hr 3000 / 3000 IV.SIG BOLUS ROBERTA Rx#:[id number] Output: Urine 1450 / 1450 Other: # Voids 1 <Maricruz Tyler A - Last Filed: 06/04/18 16:54> Results - Labs CBC & Chem 7: 06/04/18 08:12 06/04/18 02:07 Labs: Laboratory Results - last 24 hr 06/03/18 06/03/18 06/03/18 18:35 18:35 18:35 WBC RBC Hgb Hct MCV MCH MCHC RDW Plt Count MPV Neut % (Auto) Lymph % (Auto) Stone % (Auto) Eos % (Auto) Baso % (Auto) Neut # (Auto) Lymph # (Auto) Stone # (Auto) Eos # (Auto) Baso # (Auto) WBC Differential Differential Comment PT 10.7 INR 1.1 APTT 25.9 Sodium Potassium Chloride Carbon Dioxide Anion Gap BUN Creatinine Estimated GFR POC Glucose Random Glucose Lactic Acid Calcium Magnesium 2.1 Total Bilirubin AST ALT Alkaline Phosphatase Total Creatine Kinase 163 Troponin I Total Protein Albumin TSH Free T4 Free T3 Urine Color Urine Clarity Urine pH Ur Specific [place] Urine Protein Urine Glucose (UA) Urine Ketones Urine Occult Blood Urine Nitrate Urine Bilirubin Urine Urobilinogen Ur Leukocyte Esterase Urine RBC Urine WBC Micro UA Comment Ur Microscopic Review Urine Culture Comments Blood Type A Positive Blood Type Recheck Required Antibody Screen Negative 06/03/18 06/03/18 06/03/18 18:35 18:35 18:35 WBC 10.6 RBC 3.93 L Hgb 12.4 L Hct 37.2 L MCV 94.6 MCH 31.6 MCHC 33.4 RDW 13.7 Plt Count 186 MPV 8.7 Neut % (Auto) 76.4 H Lymph % (Auto) 14.5 Stone % (Auto) 7.7 Eos % (Auto) 1.3 Baso % (Auto) 0.1 Neut # (Auto) 8.1 H Lymph # (Auto) 1.5 Stone # (Auto) 0.8 Eos # (Auto) 0.1 Baso # (Auto) 0.0 WBC Differential . Differential Comment Auto diff final PT INR APTT Sodium 134 L Potassium 4.6 Chloride 104 Carbon Dioxide 22.8 Anion Gap 7 BUN 17 Creatinine 1.33 H Estimated GFR 51 L POC Glucose Random Glucose 137 H Lactic Acid 1.7 Calcium 8.1 L Magnesium Total Bilirubin 0.5 AST 27 ALT 21 Alkaline Phosphatase 62 Total Creatine Kinase Troponin I 0.10 H Total Protein 6.9 Albumin 3.2 L TSH Free T4 Free T3 Urine Color Urine Clarity Urine pH Ur Specific [place] Urine Protein Urine Glucose (UA) Urine Ketones Urine Occult Blood Urine Nitrate Urine Bilirubin Urine Urobilinogen Ur Leukocyte Esterase Urine RBC Urine WBC Micro UA Comment Ur Microscopic Review Urine Culture Comments Blood Type Blood Type Recheck Antibody Screen 06/03/18 06/03/18 06/04/18 18:35 18:35 00:32 WBC RBC Hgb Hct MCV MCH MCHC RDW Plt Count MPV Neut % (Auto) Lymph % (Auto) Stone % (Auto) Eos % (Auto) Baso % (Auto) Neut # (Auto) Lymph # (Auto) Stone # (Auto) Eos # (Auto) Baso # (Auto) WBC Differential Differential Comment PT INR APTT Sodium Potassium Chloride Carbon Dioxide Anion Gap BUN Creatinine Estimated GFR POC Glucose Random Glucose Lactic Acid Calcium Magnesium Total Bilirubin AST ALT Alkaline Phosphatase Total Creatine Kinase Troponin I Total Protein Albumin TSH 6.670 H Free T4 0.81 Free T3 2.45 Urine Color Yellow Urine Clarity Clear Urine pH 6.0 Ur Specific [place] 1.021 Urine Protein Negative Urine Glucose (UA) Negative Urine Ketones Negative Urine Occult Blood Negative Urine Nitrate Negative Urine Bilirubin Negative Urine Urobilinogen Less than 2 Ur Leukocyte Esterase Negative Urine RBC Less than 1 Urine WBC 1 Micro UA Comment Culture not ind Ur Microscopic Review Not Reportable Urine Culture Comments Culture not ind Blood Type Blood Type Recheck Antibody Screen 06/04/18 06/04/18 06/04/18 02:07 02:07 03:28 WBC 9.0 RBC 3.40 L Hgb 10.9 L Hct 32.2 L MCV 94.8 MCH 32.1 MCHC 33.8 RDW 13.8 Plt Count 190 MPV 9.0 Neut % (Auto) 67.6 Lymph % (Auto) 21.3 Stone % (Auto) 8.9 H Eos % (Auto) 1.6 Baso % (Auto) 0.6 Neut # (Auto) 6.1 Lymph # (Auto) 1.9 Stone # (Auto) 0.8 Eos # (Auto) 0.1 Baso # (Auto) 0.1 WBC Differential . Differential Comment Auto diff final PT INR APTT Sodium 139 Potassium 4.2 Chloride 108 H Carbon Dioxide 23.5 Anion Gap 8 BUN 16 Creatinine 1.15 Estimated GFR 60 L POC Glucose 94 Random Glucose 93 Lactic Acid Calcium 7.8 L Magnesium Total Bilirubin AST ALT Alkaline Phosphatase Total Creatine Kinase 241 Troponin I 3.34 H* Total Protein Albumin TSH Free T4 Free T3 Urine Color Urine Clarity Urine pH Ur Specific [place] Urine Protein Urine Glucose (UA) Urine Ketones Urine Occult Blood Urine Nitrate Urine Bilirubin Urine Urobilinogen Ur Leukocyte Esterase Urine RBC Urine WBC Micro UA Comment Ur Microscopic Review Urine Culture Comments Blood Type Blood Type Recheck Antibody Screen 06/04/18 06/04/18 06/04/18 05:41 08:12 08:12 WBC RBC Hgb 11.9 L Hct 34.9 L MCV MCH MCHC RDW Plt Count MPV Neut % (Auto) Lymph % (Auto) Stone % (Auto) Eos % (Auto) Baso % (Auto) Neut # (Auto) Lymph # (Auto) Stone # (Auto) Eos # (Auto) Baso # (Auto) WBC Differential Differential Comment PT 11.4 INR 1.1 APTT 42.1 H D Sodium Potassium Chloride Carbon Dioxide Anion Gap BUN Creatinine Estimated GFR POC Glucose Random Glucose Lactic Acid Calcium Magnesium Total Bilirubin AST ALT Alkaline Phosphatase Total Creatine Kinase 279 Troponin I 4.79 H* Total Protein Albumin TSH Free T4 Free T3 Urine Color Urine Clarity Urine pH Ur Specific [place] Urine Protein Urine Glucose (UA) Urine Ketones Urine Occult Blood Urine Nitrate Urine Bilirubin Urine Urobilinogen Ur Leukocyte Esterase Urine RBC Urine WBC Micro UA Comment Ur Microscopic Review Urine Culture Comments Blood Type Blood Type Recheck Antibody Screen 06/04/18 06/04/18 06/04/18 09:00 09:50 12:15 WBC RBC Hgb Hct MCV MCH MCHC RDW Plt Count MPV Neut % (Auto) Lymph % (Auto) Stone % (Auto) Eos % (Auto) Baso % (Auto) Neut # (Auto) Lymph # (Auto) Stone # (Auto) Eos # (Auto) Baso # (Auto) WBC Differential Differential Comment PT INR APTT 49.2 H Sodium Potassium Chloride Carbon Dioxide Anion Gap BUN Creatinine Estimated GFR POC Glucose 73 90 Random Glucose Lactic Acid Calcium Magnesium Total Bilirubin AST ALT Alkaline Phosphatase Total Creatine Kinase Troponin I Total Protein Albumin TSH Free T4 Free T3 Urine Color Urine Clarity Urine pH Ur Specific [place] Urine Protein Urine Glucose (UA) Urine Ketones Urine Occult Blood Urine Nitrate Urine Bilirubin Urine Urobilinogen Ur Leukocyte Esterase Urine RBC Urine WBC Micro UA Comment Ur Microscopic Review Urine Culture Comments Blood Type Blood Type Recheck Antibody Screen - Imaging Impressions Chest X-Ray 06/03/18 18:38 CONCLUSION: No acute cardiopulmonary disease. Abdomen/Pelvis CT 06/03/18 19:02 CONCLUSION: 1. Unremarkable bowel gas pattern. 2. Status post cholecystectomy. <Ashely Valle - Last Filed: 06/04/18 12:37> - Labs CBC & Chem 7: 06/04/18 14:17 06/04/18 02:07 Labs: Laboratory Results - last 24 hr 06/03/18 06/03/18 06/03/18 18:35 18:35 18:35 WBC RBC Hgb Hct MCV MCH MCHC RDW Plt Count MPV Neut % (Auto) Lymph % (Auto) Stone % (Auto) Eos % (Auto) Baso % (Auto) Neut # (Auto) Lymph # (Auto) Stone # (Auto) Eos # (Auto) Baso # (Auto) WBC Differential Differential Comment PT 10.7 INR 1.1 APTT 25.9 Sodium Potassium Chloride Carbon Dioxide Anion Gap BUN Creatinine Estimated GFR POC Glucose Random Glucose Lactic Acid Calcium Magnesium 2.1 Total Bilirubin AST ALT Alkaline Phosphatase Total Creatine Kinase 163 Troponin I Total Protein Albumin TSH Free T4 Free T3 Urine Color Urine Clarity Urine pH Ur Specific [place] Urine Protein Urine Glucose (UA) Urine Ketones Urine Occult Blood Urine Nitrate Urine Bilirubin Urine Urobilinogen Ur Leukocyte Esterase Urine RBC Urine WBC Micro UA Comment Ur Microscopic Review Urine Culture Comments Blood Type A Positive Blood Type Recheck Required Antibody Screen Negative 06/03/18 06/03/18 06/03/18 18:35 18:35 18:35 WBC 10.6 RBC 3.93 L Hgb 12.4 L Hct 37.2 L MCV 94.6 MCH 31.6 MCHC 33.4 RDW 13.7 Plt Count 186 MPV 8.7 Neut % (Auto) 76.4 H Lymph % (Auto) 14.5 Stone % (Auto) 7.7 Eos % (Auto) 1.3 Baso % (Auto) 0.1 Neut # (Auto) 8.1 H Lymph # (Auto) 1.5 Stone # (Auto) 0.8 Eos # (Auto) 0.1 Baso # (Auto) 0.0 WBC Differential . Differential Comment Auto diff final PT INR APTT Sodium 134 L Potassium 4.6 Chloride 104 Carbon Dioxide 22.8 Anion Gap 7 BUN 17 Creatinine 1.33 H Estimated GFR 51 L POC Glucose Random Glucose 137 H Lactic Acid 1.7 Calcium 8.1 L Magnesium Total Bilirubin 0.5 AST 27 ALT 21 Alkaline Phosphatase 62 Total Creatine Kinase Troponin I 0.10 H Total Protein 6.9 Albumin 3.2 L TSH Free T4 Free T3 Urine Color Urine Clarity Urine pH Ur Specific [place] Urine Protein Urine Glucose (UA) Urine Ketones Urine Occult Blood Urine Nitrate Urine Bilirubin Urine Urobilinogen Ur Leukocyte Esterase Urine RBC Urine WBC Micro UA Comment Ur Microscopic Review Urine Culture Comments Blood Type Blood Type Recheck Antibody Screen 06/03/18 06/03/18 06/04/18 18:35 18:35 00:32 WBC RBC Hgb Hct MCV MCH MCHC RDW Plt Count MPV Neut % (Auto) Lymph % (Auto) Stone % (Auto) Eos % (Auto) Baso % (Auto) Neut # (Auto) Lymph # (Auto) Stone # (Auto) Eos # (Auto) Baso # (Auto) WBC Differential Differential Comment PT INR APTT Sodium Potassium Chloride Carbon Dioxide Anion Gap BUN Creatinine Estimated GFR POC Glucose Random Glucose Lactic Acid Calcium Magnesium Total Bilirubin AST ALT Alkaline Phosphatase Total Creatine Kinase Troponin I Total Protein Albumin TSH 6.670 H Free T4 0.81 Free T3 2.45 Urine Color Yellow Urine Clarity Clear Urine pH 6.0 Ur Specific [place] 1.021 Urine Protein Negative Urine Glucose (UA) Negative Urine Ketones Negative Urine Occult Blood Negative Urine Nitrate Negative Urine Bilirubin Negative Urine Urobilinogen Less than 2 Ur Leukocyte Esterase Negative Urine RBC Less than 1 Urine WBC 1 Micro UA Comment Culture not ind Ur Microscopic Review Not Reportable Urine Culture Comments Culture not ind Blood Type Blood Type Recheck Antibody Screen 06/04/18 06/04/18 06/04/18 02:07 02:07 03:28 WBC 9.0 RBC 3.40 L Hgb 10.9 L Hct 32.2 L MCV 94.8 MCH 32.1 MCHC 33.8 RDW 13.8 Plt Count 190 MPV 9.0 Neut % (Auto) 67.6 Lymph % (Auto) 21.3 Stone % (Auto) 8.9 H Eos % (Auto) 1.6 Baso % (Auto) 0.6 Neut # (Auto) 6.1 Lymph # (Auto) 1.9 Stone # (Auto) 0.8 Eos # (Auto) 0.1 Baso # (Auto) 0.1 WBC Differential . Differential Comment Auto diff final PT INR APTT Sodium 139 Potassium 4.2 Chloride 108 H Carbon Dioxide 23.5 Anion Gap 8 BUN 16 Creatinine 1.15 Estimated GFR 60 L POC Glucose 94 Random Glucose 93 Lactic Acid Calcium 7.8 L Magnesium Total Bilirubin AST ALT Alkaline Phosphatase Total Creatine Kinase 241 Troponin I 3.34 H* Total Protein Albumin TSH Free T4 Free T3 Urine Color Urine Clarity Urine pH Ur Specific [place] Urine Protein Urine Glucose (UA) Urine Ketones Urine Occult Blood Urine Nitrate Urine Bilirubin Urine Urobilinogen Ur Leukocyte Esterase Urine RBC Urine WBC Micro UA Comment Ur Microscopic Review Urine Culture Comments Blood Type Blood Type Recheck Antibody Screen 06/04/18 06/04/18 06/04/18 05:41 08:12 08:12 WBC RBC Hgb 11.9 L Hct 34.9 L MCV MCH MCHC RDW Plt Count MPV Neut % (Auto) Lymph % (Auto) Stone % (Auto) Eos % (Auto) Baso % (Auto) Neut # (Auto) Lymph # (Auto) Stone # (Auto) Eos # (Auto) Baso # (Auto) WBC Differential Differential Comment PT 11.4 INR 1.1 APTT 42.1 H D Sodium Potassium Chloride Carbon Dioxide Anion Gap BUN Creatinine Estimated GFR POC Glucose Random Glucose Lactic Acid Calcium Magnesium Total Bilirubin AST ALT Alkaline Phosphatase Total Creatine Kinase 279 Troponin I 4.79 H* Total Protein Albumin TSH Free T4 Free T3 Urine Color Urine Clarity Urine pH Ur Specific [place] Urine Protein Urine Glucose (UA) Urine Ketones Urine Occult Blood Urine Nitrate Urine Bilirubin Urine Urobilinogen Ur Leukocyte Esterase Urine RBC Urine WBC Micro UA Comment Ur Microscopic Review Urine Culture Comments Blood Type Blood Type Recheck Antibody Screen 06/04/18 06/04/18 06/04/18 09:00 09:50 12:15 WBC RBC Hgb Hct MCV MCH MCHC RDW Plt Count MPV Neut % (Auto) Lymph % (Auto) Stone % (Auto) Eos % (Auto) Baso % (Auto) Neut # (Auto) Lymph # (Auto) Stone # (Auto) Eos # (Auto) Baso # (Auto) WBC Differential Differential Comment PT INR APTT 49.2 H Sodium Potassium Chloride Carbon Dioxide Anion Gap BUN Creatinine Estimated GFR POC Glucose 73 90 Random Glucose Lactic Acid Calcium Magnesium Total Bilirubin AST ALT Alkaline Phosphatase Total Creatine Kinase Troponin I Total Protein Albumin TSH Free T4 Free T3 Urine Color Urine Clarity Urine pH Ur Specific [place] Urine Protein Urine Glucose (UA) Urine Ketones Urine Occult Blood Urine Nitrate Urine Bilirubin Urine Urobilinogen Ur Leukocyte Esterase Urine RBC Urine WBC Micro UA Comment Ur Microscopic Review Urine Culture Comments Blood Type Blood Type Recheck Antibody Screen 06/04/18 14:17 WBC RBC Hgb 12.0 L Hct 35.1 L MCV MCH MCHC RDW Plt Count MPV Neut % (Auto) Lymph % (Auto) Stone % (Auto) Eos % (Auto) Baso % (Auto) Neut # (Auto) Lymph # (Auto) Stone # (Auto) Eos # (Auto) Baso # (Auto) WBC Differential Differential Comment PT INR APTT Sodium Potassium Chloride Carbon Dioxide Anion Gap BUN Creatinine Estimated GFR POC Glucose Random Glucose Lactic Acid Calcium Magnesium Total Bilirubin AST ALT Alkaline Phosphatase Total Creatine Kinase Troponin I Total Protein Albumin TSH Free T4 Free T3 Urine Color Urine Clarity Urine pH Ur Specific [place] Urine Protein Urine Glucose (UA) Urine Ketones Urine Occult Blood Urine Nitrate Urine Bilirubin Urine Urobilinogen Ur Leukocyte Esterase Urine RBC Urine WBC Micro UA Comment Ur Microscopic Review Urine Culture Comments Blood Type Blood Type Recheck Antibody Screen - Imaging Impressions Chest X-Ray 06/03/18 18:38 CONCLUSION: No acute cardiopulmonary disease. Abdomen/Pelvis CT 06/03/18 19:02 CONCLUSION: 1. Unremarkable bowel gas pattern. 2. Status post cholecystectomy. <Maricruz Tyler A - Last Filed: 06/04/18 16:54> Assessment and Plan (1) GI bleed Status: Acute Code(s): K92.2 - Gastrointestinal hemorrhage, unspecified - Plan This is an 87-year-old male patient with a past medical history significant for dementia, diabetes, hyper triglycerides and obstructive sleep apnea. Patient was brought to the emergency room for evaluation of tachycardia and generalized weakness. His is present in the room at this time and is providing information to compile history of present illness. Spouse reports patient became pale with an increased heart rate and generalized weakness over the last 24 hours. States he became nauseated and lethargic. She states she is unsure if his stools have been black or dark in color. She reports last EGD was done 2 years ago which revealed Steen's esophagus. She denies any noted difficulty swallowing or pain with swallowing. Of note, patient's troponin noted to be elevated at 4.79. Patient currently on heparin infusion awaiting cardiology consult. Hemoglobin 11.9 hematocrit 34.9 She endorses last colonoscopy done 2 years ago where polyps were removed and noted to be benign per her recollection. She denies patient use of tobacco or alcohol products. She denies any known family history of gastrointestinal disorders. And states patient has continued to deny any nausea vomiting or abdominal pain. Our service has been consulted to evaluate patient for heme positive stool concerning for GI bleeding. Hemoccult positive stools GI bleed -Patient presented to emergency room due to spouse report patient became tachycardia with generalized weakness. -States she is unsure if stools have been darker or black in color. -History of Steen's esophagus -Elevated troponin 4.79, awaiting cardiology consult, on heparin infusion. -Hemoglobin 11.9 hematocrit 34.9 Plan -N.p.o. -May advance to clear liquid diet if no active bleeding -Monitor hemoglobin and hematocrit -Monitor for bleeding-report active bleeding to GI -Zofran as needed -Continue pantoprazole 40 mg IV every 12 -Patient may require upper endoscopy when stable-will require cardiology clearance -Supportive care -Further recommendations to follow This patient has been seen by myself and Dr. Tyler and this note is written on his behalf - Attending Attestation dr. tyler <Ashely Valle - Last Filed: 06/04/18 12:37> (1) GI bleed Status: Acute Code(s): K92.2 - Gastrointestinal hemorrhage, unspecified - Attending Attestation Seen with chivo, plan as above. Will follow up with you. Thank you for the consult. <Maricruz Tyler - Last Filed: 06/04/18 16:54>
--- NOTE | 2018-06-04 14:29 | P.PNIM ---
Subjective Interval history: 87-year-old male with a past medical history significant for diabetes mellitus, dementia, ANTONI and hypertriglyceridemia presents to the emergency department for the evaluation of weakness and tachycardia. The patient's provides the history. She states that prior to dinner the patient was complaining of generalized weakness and he was unable to get up and walk to the dining [place]inez. She reports that he was tachycardic with a heart rate in the 140s, pale and weak. Patient denies any chest pain or shortness of breath. No abdominal pain. No nausea/vomiting/diarrhea. No focal neurologic deficits. No recent fever/chills. On arrival to the emergency department the patient was found to be in sinus tach with a heart rate of 140. He was given 1 dose of diltiazem x1 and was in normal sinus rhythm in the 60s at the time of our interview. Patient's initial troponin was 0.10, repeat 3.34. Repeat EKG showed normal sinus rhythm without ST segment elevations or depressions. Patient denies chest pain. In the emergency department the patient was weakly Hemoccult positive with brown stool. 06-04 patient currently denies any chest pain or shortness of breath at this time Patient has been seen by cardiology as well as gastroenterology cardiology wants to medically manage him Gastroenterology might consider an endoscopy since he has a history of Steen' s esophagus-but gastroenterology once cardiology clearance first Will feed the patient No intervention by cardiology at this time Have discussed with and patient will feed the patient Will increase activity and ask physical therapy to eval and treat Physical Exam Vital signs: Vital Signs 06/03/18 18:20 06/03/18 18:39 06/03/18 19:15 Temperature 97.9 F Pulse Rate 144 H 59 L 136 H Respiratory Rate 15 16 Blood Pressure 97/54 L 87/58 L Pulse Oximetry 96 94 L 06/03/18 19:30 06/03/18 20:55 06/03/18 21:00 Temperature Pulse Rate 138 H 138 H 72 Respiratory Rate 16 16 14 Blood Pressure 88/54 L 88/54 L 84/51 L Pulse Oximetry 94 L 92 L 06/03/18 21:15 06/03/18 21:45 06/03/18 23:33 Temperature Pulse Rate 64 62 59 L Respiratory Rate 14 16 Blood Pressure 84/51 L 85/50 L 89/50 L Pulse Oximetry 94 L 98 93 L 06/04/18 02:13 06/04/18 03:02 06/04/18 04:38 Temperature Pulse Rate 66 59 L 63 Respiratory Rate 16 16 16 Blood Pressure 93/55 L 102/59 L 137/71 Pulse Oximetry 95 06/04/18 07:00 06/04/18 08:20 06/04/18 08:49 Temperature 97.9 F 98.1 F Pulse Rate 59 L 57 L 64 Respiratory Rate 18 19 Blood Pressure 105/56 L 118/63 Pulse Oximetry 96 95 98 06/04/18 10:30 06/04/18 12:00 06/04/18 13:39 Temperature 97.8 F 97.8 F 97.8 F Pulse Rate 59 L 58 L 67 Respiratory Rate 17 18 17 Blood Pressure 102/67 102/60 113/64 Pulse Oximetry 97 97 98 Intake & Output 06/03/18 06/04/18 06/04/18 18:59 06:59 18:59 Intake Total 3000 / 3000 Output Total 1450 / 1450 Balance 3000 / 3000 -1450 / -1450 Weight 74.389 kg Intake: IV 3000 / 3000 NS Inj 1,000 ML @ 1000 mls/hr 3000 / 3000 IV.SIG BOLUS ROBERTA Rx#:[id number] Output: Urine 1450 / 1450 Other: # Voids 1 Narrative: GENERAL: Awake alert and oriented x3 talkative and cooperative SKIN: Warm and dry. HEAD: Normocephalic. Atraumatic EYES: No scleral icterus. No injection or drainage. PERRLA Tongue is midline oromucosa is moist oropharynx is clear NECK: Supple, trachea midline. No JVD or lymphadenopathy. CARDIOVASCULAR: Regular rate and rhythm without murmurs, gallops, or rubs. S1- S2 no S3 or S4 RESPIRATORY: Breath sounds equal bilaterally. No accessory muscle use. GASTROINTESTINAL: Abdomen soft, non-tender, nondistended. MUSCULOSKELETAL: No cyanosis, or edema. Neuro cranial nerves II through XII are grossly intact Deep tendon reflexes 2-4 in upper extremity and lower extremity bilaterally Skin is warm and dry no obvious rashes Insight and judgment is limited Mood and behavior somewhat appropriate Results - Labs CBC & Chem 7: 06/04/18 08:12 06/04/18 02:07 Laboratory Results - last 24 hr 06/03/18 06/03/18 06/03/18 18:35 18:35 18:35 WBC RBC Hgb Hct MCV MCH MCHC RDW Plt Count MPV Neut % (Auto) Lymph % (Auto) [place] % (Auto) Eos % (Auto) Baso % (Auto) Neut # (Auto) Lymph # (Auto) [place] # (Auto) Eos # (Auto) Baso # (Auto) WBC Differential Differential Comment PT 10.7 INR 1.1 APTT 25.9 Sodium Potassium Chloride Carbon Dioxide Anion Gap BUN Creatinine Estimated GFR POC Glucose Random Glucose Lactic Acid Calcium Magnesium 2.1 Total Bilirubin AST ALT Alkaline Phosphatase Total Creatine Kinase 163 Troponin I Total Protein Albumin TSH Free T4 Free T3 Urine Color Urine Clarity Urine pH Ur Specific [place] Urine Protein Urine Glucose (UA) Urine Ketones Urine Occult Blood Urine Nitrate Urine Bilirubin Urine Urobilinogen Ur Leukocyte Esterase Urine RBC Urine WBC Micro UA Comment Ur Microscopic Review Urine Culture Comments Blood Type A Positive Blood Type Recheck Required Antibody Screen Negative 06/03/18 06/03/18 06/03/18 18:35 18:35 18:35 WBC 10.6 RBC 3.93 L Hgb 12.4 L Hct 37.2 L MCV 94.6 MCH 31.6 MCHC 33.4 RDW 13.7 Plt Count 186 MPV 8.7 Neut % (Auto) 76.4 H Lymph % (Auto) 14.5 [place] % (Auto) 7.7 Eos % (Auto) 1.3 Baso % (Auto) 0.1 Neut # (Auto) 8.1 H Lymph # (Auto) 1.5 [place] # (Auto) 0.8 Eos # (Auto) 0.1 Baso # (Auto) 0.0 WBC Differential . Differential Comment Auto diff final PT INR APTT Sodium 134 L Potassium 4.6 Chloride 104 Carbon Dioxide 22.8 Anion Gap 7 BUN 17 Creatinine 1.33 H Estimated GFR 51 L POC Glucose Random Glucose 137 H Lactic Acid 1.7 Calcium 8.1 L Magnesium Total Bilirubin 0.5 AST 27 ALT 21 Alkaline Phosphatase 62 Total Creatine Kinase Troponin I 0.10 H Total Protein 6.9 Albumin 3.2 L TSH Free T4 Free T3 Urine Color Urine Clarity Urine pH Ur Specific [place] Urine Protein Urine Glucose (UA) Urine Ketones Urine Occult Blood Urine Nitrate Urine Bilirubin Urine Urobilinogen Ur Leukocyte Esterase Urine RBC Urine WBC Micro UA Comment Ur Microscopic Review Urine Culture Comments Blood Type Blood Type Recheck Antibody Screen 06/03/18 06/03/18 06/04/18 18:35 18:35 00:32 WBC RBC Hgb Hct MCV MCH MCHC RDW Plt Count MPV Neut % (Auto) Lymph % (Auto) [place] % (Auto) Eos % (Auto) Baso % (Auto) Neut # (Auto) Lymph # (Auto) [place] # (Auto) Eos # (Auto) Baso # (Auto) WBC Differential Differential Comment PT INR APTT Sodium Potassium Chloride Carbon Dioxide Anion Gap BUN Creatinine Estimated GFR POC Glucose Random Glucose Lactic Acid Calcium Magnesium Total Bilirubin AST ALT Alkaline Phosphatase Total Creatine Kinase Troponin I Total Protein Albumin TSH 6.670 H Free T4 0.81 Free T3 2.45 Urine Color Yellow Urine Clarity Clear Urine pH 6.0 Ur Specific [place] 1.021 Urine Protein Negative Urine Glucose (UA) Negative Urine Ketones Negative Urine Occult Blood Negative Urine Nitrate Negative Urine Bilirubin Negative Urine Urobilinogen Less than 2 Ur Leukocyte Esterase Negative Urine RBC Less than 1 Urine WBC 1 Micro UA Comment Culture not ind Ur Microscopic Review Not Reportable Urine Culture Comments Culture not ind Blood Type Blood Type Recheck Antibody Screen 06/04/18 06/04/18 06/04/18 02:07 02:07 03:28 WBC 9.0 RBC 3.40 L Hgb 10.9 L Hct 32.2 L MCV 94.8 MCH 32.1 MCHC 33.8 RDW 13.8 Plt Count 190 MPV 9.0 Neut % (Auto) 67.6 Lymph % (Auto) 21.3 [place] % (Auto) 8.9 H Eos % (Auto) 1.6 Baso % (Auto) 0.6 Neut # (Auto) 6.1 Lymph # (Auto) 1.9 [place] # (Auto) 0.8 Eos # (Auto) 0.1 Baso # (Auto) 0.1 WBC Differential . Differential Comment Auto diff final PT INR APTT Sodium 139 Potassium 4.2 Chloride 108 H Carbon Dioxide 23.5 Anion Gap 8 BUN 16 Creatinine 1.15 Estimated GFR 60 L POC Glucose 94 Random Glucose 93 Lactic Acid Calcium 7.8 L Magnesium Total Bilirubin AST ALT Alkaline Phosphatase Total Creatine Kinase 241 Troponin I 3.34 H* Total Protein Albumin TSH Free T4 Free T3 Urine Color Urine Clarity Urine pH Ur Specific [place] Urine Protein Urine Glucose (UA) Urine Ketones Urine Occult Blood Urine Nitrate Urine Bilirubin Urine Urobilinogen Ur Leukocyte Esterase Urine RBC Urine WBC Micro UA Comment Ur Microscopic Review Urine Culture Comments Blood Type Blood Type Recheck Antibody Screen 06/04/18 06/04/18 06/04/18 05:41 08:12 08:12 WBC RBC Hgb 11.9 L Hct 34.9 L MCV MCH MCHC RDW Plt Count MPV Neut % (Auto) Lymph % (Auto) [place] % (Auto) Eos % (Auto) Baso % (Auto) Neut # (Auto) Lymph # (Auto) [place] # (Auto) Eos # (Auto) Baso # (Auto) WBC Differential Differential Comment PT 11.4 INR 1.1 APTT 42.1 H D Sodium Potassium Chloride Carbon Dioxide Anion Gap BUN Creatinine Estimated GFR POC Glucose Random Glucose Lactic Acid Calcium Magnesium Total Bilirubin AST ALT Alkaline Phosphatase Total Creatine Kinase 279 Troponin I 4.79 H* Total Protein Albumin TSH Free T4 Free T3 Urine Color Urine Clarity Urine pH Ur Specific [place] Urine Protein Urine Glucose (UA) Urine Ketones Urine Occult Blood Urine Nitrate Urine Bilirubin Urine Urobilinogen Ur Leukocyte Esterase Urine RBC Urine WBC Micro UA Comment Ur Microscopic Review Urine Culture Comments Blood Type Blood Type Recheck Antibody Screen 06/04/18 06/04/18 06/04/18 09:00 09:50 12:15 WBC RBC Hgb Hct MCV MCH MCHC RDW Plt Count MPV Neut % (Auto) Lymph % (Auto) [place] % (Auto) Eos % (Auto) Baso % (Auto) Neut # (Auto) Lymph # (Auto) [place] # (Auto) Eos # (Auto) Baso # (Auto) WBC Differential Differential Comment PT INR APTT 49.2 H Sodium Potassium Chloride Carbon Dioxide Anion Gap BUN Creatinine Estimated GFR POC Glucose 73 90 Random Glucose Lactic Acid Calcium Magnesium Total Bilirubin AST ALT Alkaline Phosphatase Total Creatine Kinase Troponin I Total Protein Albumin TSH Free T4 Free T3 Urine Color Urine Clarity Urine pH Ur Specific [place] Urine Protein Urine Glucose (UA) Urine Ketones Urine Occult Blood Urine Nitrate Urine Bilirubin Urine Urobilinogen Ur Leukocyte Esterase Urine RBC Urine WBC Micro UA Comment Ur Microscopic Review Urine Culture Comments Blood Type Blood Type Recheck Antibody Screen Microbiology 06/03/18 18:35 Blood - Peripheral Aerobic Blood Culture - Preliminary No growth in 1 day 06/03/18 18:35 Blood - Peripheral Anaerobic Blood Culture - Preliminary No growth in 1 day 06/03/18 18:35 Blood - Peripheral Aerobic Blood Culture - Preliminary No growth in 1 day 06/03/18 18:35 Blood - Peripheral Anaerobic Blood Culture - Preliminary No growth in 1 day - Imaging Impressions Chest X-Ray 06/03/18 18:38 CONCLUSION: No acute cardiopulmonary disease. Abdomen/Pelvis CT 06/03/18 19:02 CONCLUSION: 1. Unremarkable bowel gas pattern. 2. Status post cholecystectomy. Assessment and Plan - Plan 1. Tachyarrhythmia/NSTEMI Initial troponin 0.10, repeat 3.34 EKG showed normal sinus rhythm without ST segment elevations or depressions, personally reviewed Heparin drip (without bolus as patient with Hemoccult positive and concern for GI bleed) Cardiology consulted, appreciate assistance--seen by cardiology and they recommend medical management only 2. ? GI bleed Weakly Hemoccult positive in the ED No recent black tarry stools or coffee-ground emesis IV Protonix Serial H&H Type and screen Transfuse as needed Gastroenterology consulted, appreciate assistance--seen by them on Protonix twice daily 3. Diabetes mellitus Holding home Lantus as patient n.p.o. Sliding scale insulin Monitor blood glucose FEN Sliding scale coverage Electrolytes: Urine replete as needed Heparin drip We will feed the patient A.m. labs Code Status: Full code at this time Discussed Condition With: RN and patient and Discharge Planning: Pending clearance by GI and cardiology
[2018-06-04 14:36] LABS: Hematocrit 35.1 % (39.0-51.0)
--- NOTE | 2018-06-04 14:39 | ECG ---
Date Performed: 06/03/2018 Time Performed: 18:39:00 PTAGE: 87 years EKG: CONSIDER ATRIAL FIBRILLATION WITH RVR MODERATE INTRAVENTRICULAR CONDUCTION DELAY NONSPECIFI C ST & T-WAVE ABNORMALITY ABNORMAL RHYTHM ECG Compared to PREVIOUS TRACING rate and rhythm is new and nonspecific ST T changes are now present PRE VIOUS TRACIN08/28/12 DOCTOR: Jeff Wallis Interpretating Date/Time 06/04/2018 14:38:14
--- NOTE | 2018-06-04 14:39 | ECG ---
Date Performed: 06/03/2018 Time Performed: 21:14:16 PTAGE: 87 years EKG: Sinus rhythm NONSPECIFIC T-WAVE ABNORMALITY BORDERLINE ECG Compared to PREVIOUS TRACING sinus rhythm is now present PREVIOUS TRACIN08/28/2012 12.29 DOCTOR: Jeff Wallis Interpretating Date/Time 06/04/2018 14:38:29
[2018-06-04 20:23] LABS: Hematocrit 35.1 % (39.0-51.0); Hemoglobin 11.7 gm/dL (13.0-17.0)
[2018-06-04] MEDS ORDERED: SACCHAROMYCES BOULARDII 250 MG PO SCH (21:00)
[2018-06-04] MEDS ORDERED: [UNRECOGNIZED DRUG - OTHER] PO SCH (21:00)
[2018-06-05 02:53] LABS: Baso % (Auto) 0.4 % (0.0-2.0); Eos # (Auto) 0.3 th/mm3 (0.0-0.4); Eos % (Auto) 2.4 % (0.0-4.0); Hematocrit 35.4 % (39.0-51.0); Hemoglobin 11.9 gm/dL (13.0-17.0); Lymph # (Auto) 2.3 th/mm3 (1.0-4.8); Lymph % (Auto) 19.6 % (9.0-44.0); Mean Corpuscular HGB Conc 33.6 % (32.0-36.0); Mean Corpuscular Hemoglobin 31.7 pg (27.0-34.0); Mean Corpuscular Volume 94.5 fL (80.0-100.0); Mean Platelet Volume 8.8 fL (7.0-11.0); Mono % (Auto) 8.8 % (0.0-8.0); Neut # (Auto) 7.9 th/mm3 (1.8-7.7); Neut % (Auto) 68.8 % (16.0-70.0); Platelet Count 184 th/mm3 (150-450); Red Blood Count 3.75 mil/mm3 (4.50-5.90); Red Cell Distribution Width 13.8 % (11.6-17.2); White Blood Count 11.5 th/mm3 (4.0-11.0)
[2018-06-05 03:17] LABS: Alanine Aminotransferase 24 U/L (12-78); Albumin 3.3 g/dL (3.4-5.0); Anion Gap 7 meq/L (5-15); Aspartate Aminotransferase 35 U/L (15-37); Blood Urea Nitrogen 15 mg/dL (7-18); Carbon Dioxide 26.2 meq/L (21.0-32.0); Chloride 110 meq/L (98-107); Cholesterol 117 mg/dL (120-200); Glomerular Filtration Rate 52 mL/min (>89); Glucose,Random 61 mg/dL (74-106); Magnesium 1.9 mg/dL (1.5-2.5); Phosphorus 3.2 mg/dL (2.5-4.9); Potassium 3.8 meq/L (3.5-5.1); Sodium 143 meq/L (136-145); Triglycerides 89 mg/dL (42-150)
[2018-06-05 03:25] LABS: Alkaline Phosphatase 62 U/L (45-117); Chol/HDL Ratio 2.84 Ratio; Free T4 (Free Thyroxine) 0.83 ng/dL (0.76-1.46); HDL Cholesterol 41.1 mg/dL (40.0-60.0); LDL Cholesterol,Calculated 58 mg/dL (0-99); Total Protein 6.7 g/dL (6.4-8.2)
[2018-06-05] MEDS: Pantoprazole Inj 40 MG Vial IV.PUSH SCH (05:34)
[2018-06-05] MEDS: Insulin NovoLOG Aspart Correctional Sugar Inj SQ SCH ×3 (05:34→12:29)
[2018-06-05] MEDS: Sod Chloride 0.9% Inj 1,000 ML IV.CONT SCH (05:35)
[2018-06-05] MEDS ORDERED: OMEGA DHA EPA FISH OIL PO SCH (09:00)
[2018-06-05] MEDS ORDERED: Ferrous Sulfate 325 MG Tablet PO SCH (09:00)
[2018-06-05] MEDS ORDERED: Non-Formulary Drug (Coenzyme Q10 [Co Q-10] 200 MG) PO SCH (09:00)
[2018-06-05] MEDS: buPROPion 150 MG 12 HR Tablet PO SCH (09:23)
[2018-06-05] MEDS: Senna/Docusate Sodium 8.6/50 MG Tablet PO SCH (09:23)
[2018-06-05] MEDS: Calcium Carbonate 500 MG Tablet PO SCH (09:23)
[2018-06-05] MEDS: Heparin Drip 25,000 UNIT/250 ML BAG IV.CONT PRN (10:00)
[2018-06-05 10:57] LABS: Hemoglobin A1c 6.8 % (4.3-6.0)
[2018-06-05 10:58] VITALS: RESP 16
--- NOTE | 2018-06-05 12:57 | P.PNGI ---
Subjective Interval history: Patient awake and alert sitting up in bed Spouse and family members present Plan for discharge home today No reported bleeding <Ashely Valle - Last Filed: 06/05/18 12:52> Physical Exam Vital signs: Vital Signs 06/04/18 13:39 06/04/18 16:05 06/04/18 18:00 Temperature 97.8 F 97.7 F Pulse Rate 67 65 68 Respiratory Rate 17 16 Blood Pressure 113/64 124/60 Pulse Oximetry 98 97 06/04/18 18:20 06/04/18 18:30 06/04/18 19:15 Temperature 97.6 F Pulse Rate 65 63 Respiratory Rate 16 Blood Pressure 111/59 L Pulse Oximetry 95 93 L 06/04/18 20:00 06/04/18 20:15 06/04/18 21:15 Temperature 98.5 F Pulse Rate 64 66 58 L Respiratory Rate 18 Blood Pressure 95/52 L Pulse Oximetry 97 06/04/18 22:15 06/04/18 23:15 06/05/18 00:00 Temperature 98.1 F Pulse Rate 76 63 69 Respiratory Rate 18 Blood Pressure 94/51 L Pulse Oximetry 94 L 06/05/18 01:00 06/05/18 02:00 06/05/18 03:00 Temperature Pulse Rate 61 62 60 Respiratory Rate Blood Pressure Pulse Oximetry 06/05/18 04:00 06/05/18 05:00 06/05/18 06:19 Temperature 98.5 F Pulse Rate 65 61 60 Respiratory Rate 18 Blood Pressure 97/55 L Pulse Oximetry 91 L 06/05/18 07:00 06/05/18 08:00 06/05/18 09:00 Temperature 97.8 F Pulse Rate 68 80 68 Respiratory Rate 16 Blood Pressure 96/54 L Pulse Oximetry 95 06/05/18 10:00 Temperature Pulse Rate 67 Respiratory Rate Blood Pressure Pulse Oximetry Intake & Output 06/04/18 06/05/18 06/05/18 18:59 06:59 18:59 Intake Total 240 / 240 1240 / 1240 250 / 250 Output Total 1750 / 1750 1000 / 1000 Balance -1510 / -1510 240 / 240 250 / 250 Weight 75 kg Intake: IV 1000 / 1000 250 / 250 Heparin/D5W 25,000 U/250 mL 25, 250 / 250 000 unit In 250 ml @ 900 UNITS/ HR 9 mls/hr IV.CONT TITRATE PRN Rx#:[id number] NS Inj 1,000 ML @ 70 mls/hr IV. 1000 / 1000 CONT .[id number] [facility] Rx#:[id number] Oral 240 / 240 240 / 240 Output: Urine 1750 / 1750 1000 / 1000 Other: # Voids 1 Date of Last Bowel Movement 06/04/18 06/05/18 06/04/18 # Bowel Movements 1 # Incontinent Bowel Movements 1 - Constitutional no acute distress - Routine Respiratory Exam Present: CTA bilaterally. Absent: accessory muscle use - Routine Abdominal Exam Present: soft, normoactive bowel sounds. Absent: tenderness, distended, guarding, firm - Routine Skin Exam Present: dry, warm - Routine Neurological Exam Present: alert - Routine Psychiatric Exam Present: cooperative <LeonardAshely - Last Filed: 06/05/18 12:52> Vital signs: Vital Signs 06/04/18 13:39 06/04/18 16:05 06/04/18 18:00 Temperature 97.8 F 97.7 F Pulse Rate 67 65 68 Respiratory Rate 17 16 Blood Pressure 113/64 124/60 Pulse Oximetry 98 97 06/04/18 18:20 06/04/18 18:30 06/04/18 19:15 Temperature 97.6 F Pulse Rate 65 63 Respiratory Rate 16 Blood Pressure 111/59 L Pulse Oximetry 95 93 L 06/04/18 20:00 06/04/18 20:15 06/04/18 21:15 Temperature 98.5 F Pulse Rate 64 66 58 L Respiratory Rate 18 Blood Pressure 95/52 L Pulse Oximetry 97 06/04/18 22:15 06/04/18 23:15 06/05/18 00:00 Temperature 98.1 F Pulse Rate 76 63 69 Respiratory Rate 18 Blood Pressure 94/51 L Pulse Oximetry 94 L 06/05/18 01:00 06/05/18 02:00 06/05/18 03:00 Temperature Pulse Rate 61 62 60 Respiratory Rate Blood Pressure Pulse Oximetry 06/05/18 04:00 06/05/18 05:00 06/05/18 06:19 Temperature 98.5 F Pulse Rate 65 61 60 Respiratory Rate 18 Blood Pressure 97/55 L Pulse Oximetry 91 L 06/05/18 07:00 06/05/18 08:00 06/05/18 09:00 Temperature 97.8 F Pulse Rate 68 80 68 Respiratory Rate 16 Blood Pressure 96/54 L Pulse Oximetry 95 06/05/18 10:00 06/05/18 11:00 06/05/18 12:00 Temperature Pulse Rate 67 66 67 Respiratory Rate Blood Pressure Pulse Oximetry 06/05/18 12:54 Temperature Pulse Rate 67 Respiratory Rate Blood Pressure Pulse Oximetry Intake & Output 06/04/18 06/05/18 06/05/18 18:59 06:59 18:59 Intake Total 240 / 240 1240 / 1240 250 / 250 Output Total 1750 / 1750 1000 / 1000 Balance -1510 / -1510 240 / 240 250 / 250 Weight 75 kg Intake: IV 1000 / 1000 250 / 250 Heparin/D5W 25,000 U/250 mL 25, 250 / 250 000 unit In 250 ml @ 900 UNITS/ HR 9 mls/hr IV.CONT TITRATE PRN Rx#:[id number] NS Inj 1,000 ML @ 70 mls/hr IV. 1000 / 1000 CONT .[id number] [facility] Rx#:[id number] Oral 240 / 240 240 / 240 Output: Urine 1750 / 1750 1000 / 1000 Other: # Voids 1 Date of Last Bowel Movement 06/04/18 06/05/18 06/04/18 # Bowel Movements 1 # Incontinent Bowel Movements 1 <Maricruz Cazares A - Last Filed: 06/05/18 12:59> Results - Labs CBC & Chem 7: 06/05/18 02:40 06/05/18 02:40 Laboratory Results - last 24 hr 06/04/18 06/04/18 06/04/18 14:17 16:00 18:33 WBC RBC Hgb 12.0 L Hct 35.1 L MCV MCH MCHC RDW Plt Count MPV Neut % (Auto) Lymph % (Auto) [place] % (Auto) Eos % (Auto) Baso % (Auto) Neut # (Auto) Lymph # (Auto) [place] # (Auto) Eos # (Auto) Baso # (Auto) WBC Differential Differential Comment APTT 72.3 H D Sodium Potassium Chloride Carbon Dioxide Anion Gap BUN Creatinine Estimated GFR POC Glucose 192 H Random Glucose Hemoglobin A1c Calcium Phosphorus Magnesium Total Bilirubin AST ALT Alkaline Phosphatase Total Protein Albumin Triglycerides Cholesterol LDL Cholesterol, Calc HDL Cholesterol Cholesterol/HDL Ratio TSH Free T4 06/04/18 06/04/18 06/05/18 19:58 20:17 02:40 WBC RBC Hgb 11.7 L Hct 35.1 L MCV MCH MCHC RDW Plt Count MPV Neut % (Auto) Lymph % (Auto) [place] % (Auto) Eos % (Auto) Baso % (Auto) Neut # (Auto) Lymph # (Auto) [place] # (Auto) Eos # (Auto) Baso # (Auto) WBC Differential Differential Comment APTT 79.7 H Sodium Potassium Chloride Carbon Dioxide Anion Gap BUN Creatinine Estimated GFR POC Glucose 179 H Random Glucose Hemoglobin A1c Calcium Phosphorus Magnesium Total Bilirubin AST ALT Alkaline Phosphatase Total Protein Albumin Triglycerides Cholesterol LDL Cholesterol, Calc HDL Cholesterol Cholesterol/HDL Ratio TSH Free T4 06/05/18 06/05/18 06/05/18 02:40 02:40 02:40 WBC 11.5 H RBC 3.75 L Hgb 11.9 L Hct 35.4 L MCV 94.5 MCH 31.7 MCHC 33.6 RDW 13.8 Plt Count 184 MPV 8.8 Neut % (Auto) 68.8 Lymph % (Auto) 19.6 [place] % (Auto) 8.8 H Eos % (Auto) 2.4 Baso % (Auto) 0.4 Neut # (Auto) 7.9 H Lymph # (Auto) 2.3 [place] # (Auto) 1.0 H Eos # (Auto) 0.3 Baso # (Auto) 0.0 WBC Differential . Differential Comment Auto diff final APTT Sodium 143 Potassium 3.8 Chloride 110 H Carbon Dioxide 26.2 Anion Gap 7 BUN 15 Creatinine 1.32 H Estimated GFR 52 L POC Glucose Random Glucose 61 L Hemoglobin A1c 6.8 H Calcium 8.0 L Phosphorus 3.2 Magnesium 1.9 Total Bilirubin 0.5 AST 35 ALT 24 Alkaline Phosphatase 62 Total Protein 6.7 Albumin 3.3 L Triglycerides 89 Cholesterol 117 L LDL Cholesterol, Calc 58 HDL Cholesterol 41.1 Cholesterol/HDL Ratio 2.84 TSH 9.200 H Free T4 0.83 06/05/18 06/05/18 06/05/18 05:12 07:47 10:53 WBC RBC Hgb Hct MCV MCH MCHC RDW Plt Count MPV Neut % (Auto) Lymph % (Auto) [place] % (Auto) Eos % (Auto) Baso % (Auto) Neut # (Auto) Lymph # (Auto) [place] # (Auto) Eos # (Auto) Baso # (Auto) WBC Differential Differential Comment APTT 72.0 H Sodium Potassium Chloride Carbon Dioxide Anion Gap BUN Creatinine Estimated GFR POC Glucose 87 98 Random Glucose Hemoglobin A1c Calcium Phosphorus Magnesium Total Bilirubin AST ALT Alkaline Phosphatase Total Protein Albumin Triglycerides Cholesterol LDL Cholesterol, Calc HDL Cholesterol Cholesterol/HDL Ratio TSH Free T4 06/05/18 12:02 WBC RBC Hgb Hct MCV MCH MCHC RDW Plt Count MPV Neut % (Auto) Lymph % (Auto) [place] % (Auto) Eos % (Auto) Baso % (Auto) Neut # (Auto) Lymph # (Auto) [place] # (Auto) Eos # (Auto) Baso # (Auto) WBC Differential Differential Comment APTT Sodium Potassium Chloride Carbon Dioxide Anion Gap BUN Creatinine Estimated GFR POC Glucose 180 H Random Glucose Hemoglobin A1c Calcium Phosphorus Magnesium Total Bilirubin AST ALT Alkaline Phosphatase Total Protein Albumin Triglycerides Cholesterol LDL Cholesterol, Calc HDL Cholesterol Cholesterol/HDL Ratio TSH Free T4 Microbiology 06/03/18 18:35 Blood - Peripheral Aerobic Blood Culture - Preliminary No growth in 2 days 06/03/18 18:35 Blood - Peripheral Anaerobic Blood Culture - Preliminary No growth in 2 days 06/03/18 18:35 Blood - Peripheral Aerobic Blood Culture - Preliminary No growth in 2 days 06/03/18 18:35 Blood - Peripheral Anaerobic Blood Culture - Preliminary No growth in 2 days <Ashely Valle - Last Filed: 06/05/18 12:52> - Labs CBC & Chem 7: 06/05/18 02:40 06/05/18 02:40 Laboratory Results - last 24 hr 06/04/18 06/04/18 06/04/18 14:17 16:00 18:33 WBC RBC Hgb 12.0 L Hct 35.1 L MCV MCH MCHC RDW Plt Count MPV Neut % (Auto) Lymph % (Auto) [place] % (Auto) Eos % (Auto) Baso % (Auto) Neut # (Auto) Lymph # (Auto) [place] # (Auto) Eos # (Auto) Baso # (Auto) WBC Differential Differential Comment APTT 72.3 H D Sodium Potassium Chloride Carbon Dioxide Anion Gap BUN Creatinine Estimated GFR POC Glucose 192 H Random Glucose Hemoglobin A1c Calcium Phosphorus Magnesium Total Bilirubin AST ALT Alkaline Phosphatase Total Protein Albumin Triglycerides Cholesterol LDL Cholesterol, Calc HDL Cholesterol Cholesterol/HDL Ratio TSH Free T4 06/04/18 06/04/1806/05/18 19:58 20:17 02:40 WBC RBC Hgb 11.7 L Hct 35.1 L MCV MCH MCHC RDW Plt Count MPV Neut % (Auto) Lymph % (Auto) [place] % (Auto) Eos % (Auto) Baso % (Auto) Neut # (Auto) Lymph # (Auto) [place] # (Auto) Eos # (Auto) Baso # (Auto) WBC Differential Differential Comment APTT 79.7 H Sodium Potassium Chloride Carbon Dioxide Anion Gap BUN Creatinine Estimated GFR POC Glucose 179 H Random Glucose Hemoglobin A1c Calcium Phosphorus Magnesium Total Bilirubin AST ALT Alkaline Phosphatase Total Protein Albumin Triglycerides Cholesterol LDL Cholesterol, Calc HDL Cholesterol Cholesterol/HDL Ratio TSH Free T4 06/05/18 06/05/18 06/05/18 02:40 02:40 02:40 WBC 11.5 H RBC 3.75 L Hgb 11.9 L Hct 35.4 L MCV 94.5 MCH 31.7 MCHC 33.6 RDW 13.8 Plt Count 184 MPV 8.8 Neut % (Auto) 68.8 Lymph % (Auto) 19.6 [place] % (Auto) 8.8 H Eos % (Auto) 2.4 Baso % (Auto) 0.4 Neut # (Auto) 7.9 H Lymph # (Auto) 2.3 [place] # (Auto) 1.0 H Eos # (Auto) 0.3 Baso # (Auto) 0.0 WBC Differential . Differential Comment Auto diff final APTT Sodium 143 Potassium 3.8 Chloride 110 H Carbon Dioxide 26.2 Anion Gap 7 BUN 15 Creatinine 1.32 H Estimated GFR 52 L POC Glucose Random Glucose 61 L Hemoglobin A1c 6.8 H Calcium 8.0 L Phosphorus 3.2 Magnesium 1.9 Total Bilirubin 0.5 AST 35 ALT 24 Alkaline Phosphatase 62 Total Protein 6.7 Albumin 3.3 L Triglycerides 89 Cholesterol 117 L LDL Cholesterol, Calc 58 HDL Cholesterol 41.1 Cholesterol/HDL Ratio 2.84 TSH 9.200 H Free T4 0.83 06/05/18 06/05/18 06/05/18 05:12 07:47 10:53 WBC RBC Hgb Hct MCV MCH MCHC RDW Plt Count MPV Neut % (Auto) Lymph % (Auto) [place] % (Auto) Eos % (Auto) Baso % (Auto) Neut # (Auto) Lymph # (Auto) [place] # (Auto) Eos # (Auto) Baso # (Auto) WBC Differential Differential Comment APTT 72.0 H Sodium Potassium Chloride Carbon Dioxide Anion Gap BUN Creatinine Estimated GFR POC Glucose 87 98 Random Glucose Hemoglobin A1c Calcium Phosphorus Magnesium Total Bilirubin AST ALT Alkaline Phosphatase Total Protein Albumin Triglycerides Cholesterol LDL Cholesterol, Calc HDL Cholesterol Cholesterol/HDL Ratio TSH Free T4 06/05/18 12:02 WBC RBC Hgb Hct MCV MCH MCHC RDW Plt Count MPV Neut % (Auto) Lymph % (Auto) [place] % (Auto) Eos % (Auto) Baso % (Auto) Neut # (Auto) Lymph # (Auto) [place] # (Auto) Eos # (Auto) Baso # (Auto) WBC Differential Differential Comment APTT Sodium Potassium Chloride Carbon Dioxide Anion Gap BUN Creatinine Estimated GFR POC Glucose 180 H Random Glucose Hemoglobin A1c Calcium Phosphorus Magnesium Total Bilirubin AST ALT Alkaline Phosphatase Total Protein Albumin Triglycerides Cholesterol LDL Cholesterol, Calc HDL Cholesterol Cholesterol/HDL Ratio TSH Free T4 Microbiology 06/03/18 18:35 Blood - Peripheral Aerobic Blood Culture - Preliminary No growth in 2 days 06/03/18 18:35 Blood - Peripheral Anaerobic Blood Culture - Preliminary No growth in 2 days 06/03/18 18:35 Blood - Peripheral Aerobic Blood Culture - Preliminary No growth in 2 days 06/03/18 18:35 Blood - Peripheral Anaerobic Blood Culture - Preliminary No growth in 2 days <Maricruz Cazares - Last Filed: 06/05/18 12:59> Assessment and Plan (1) GI bleed Status: Acute Code(s): K92.2 - Gastrointestinal hemorrhage, unspecified - Plan This is an 87-year-old male patient with a past medical history significant for dementia, diabetes, hyper triglycerides and obstructive sleep apnea. Patient was brought to the emergency room for evaluation of tachycardia and generalized weakness. His is present in the room at this time and is providing information to compile history of present illness. Spouse reports patient became pale with an increased heart rate and generalized weakness over the last 24 hours. States he became nauseated and lethargic. She states she is unsure if his stools have been black or dark in color. She reports last EGD was done 2 years ago which revealed Steen's esophagus. She denies any noted difficulty swallowing or pain with swallowing. Of note, patient's troponin noted to be elevated at 4.79. Patient currently on heparin infusion awaiting cardiology consult. Hemoglobin 11.9 hematocrit 34.9 She endorses last colonoscopy done 2 years ago where polyps were removed and noted to be benign per her recollection. She denies patient use of tobacco or alcohol products. She denies any known family history of gastrointestinal disorders. And states patient has continued to deny any nausea vomiting or abdominal pain. Our service has been consulted to evaluate patient for heme positive stool concerning for GI bleeding. Hemoccult positive stools GI bleed -Patient presented to emergency room due to spouse report patient became tachycardia with generalized weakness. -States she is unsure if stools have been darker or black in color. -History of Steen's esophagus -Elevated troponin 4.79, awaiting cardiology consult, on heparin infusion. -Hemoglobin 11.9 hematocrit 34.9 06/05/2018 Patient awake and alert No reported bleeding or dark stools or hematemesis Hemoglobin 11.9 hematocrit 35.4 Plan -Diet as tolerated -Follow-up with GI post discharge-history of Steen's esophagus -Monitor for bleeding -PPI -Patient may require upper endoscopy when stable-will require cardiology clearance -Supportive care -GI will sign off at this time. This patient has been seen by myself and Dr. Cazares and this note is written on his behalf - Attending Attestation Dr. Cazares <Ashely Valle - Last Filed: 06/05/18 12:52> (1) GI bleed Status: Acute Code(s): K92.2 - Gastrointestinal hemorrhage, unspecified - Attending Attestation Agree with above assessment and plan. <Maricruz Cazares - Last Filed: 06/05/18 12:59>
[2018-06-05 12:59] VITALS: BP 106/59; TEMP 97.9; O2SAT 97
--- NOTE | 2018-06-05 13:32 | ECHRPT ---
Indication: HYPERTENSIVE HEART DISEASE CONCLUSIONS Normal left ventricular size. Wall thickness is normal. The left ventricular systolic function is low normal with an estimated ejection fraction in the rang e of 50- 55%. Trace to mild mitral valve regurgitation. Calcification of the posterior mitral valve leaflet. Aortic valve sclerosis is present. There is trace tricuspid valve regurgitation. BP: / HR: Rhythm: Sinus MEASUREMENTS (Male / Female) Normal Values Technical Quality:Fair 2D ECHO LV Diastolic Diameter PLAX 4.5 cm 4.2 - 5.9 / 3.9 - 5.3 cm LV Systolic Diameter PLAX 3.7 cm IVS Diastolic Thickness 1.0 cm 0.6 - 1.0 / 0.6 - 0.9 cm LVPW Diastolic Thickness 0.9 cm 0.6 - 1.0 / 0.6 - 0.9 cm LV Relative Wall Thickness 0.4 RV Internal Dim ED PLAX 1.9 cm LVOT Diameter 2.0 cm Aortic Root Diameter 3.4 cm LA Systolic Diameter LX 3.7 cm 3.0 - 4.0 / 2.7 - 3.8 cm DOPPLER AV Peak Velocity 147.0 cm/s AV Peak Gradient 8.6 mmHg LVOT Peak Velocity 111.0 cm/s LVOT Peak Gradient 4.9 mmHg AV Area Cont Eq pk 2.4 cm MV Peak Velocity 116.0 cm/s MV Peak Gradient 5.4 mmHg MV Mean Velocity 75.1 cm/s MV Mean Gradient 3.0 mmHg MV Area PHT 3.1 cm Mitral E Point Velocity 91.6 cm/s Mitral A Point Velocity 116.0 cm/s Mitral E to A Ratio 0.8 LV E' Septal Velocity 4.9 cm/s Mitral E to LV E' Septal Ratio 18.8 TR Peak Velocity 162.0 cm/s TR Peak Gradient 10.5 mmHg Right Atrial Pressure 10.0 mmHg Pulmonary Artery Systolic Pressu 20.5 mmHg Right Ventricular Systolic Press 20.5 mmHg FINDINGS LEFT VENTRICLE Normal left ventricular size. Wall thickness is normal. The left ventricular systolic function is low normal with an estimated ejection fraction in the rang e of 50- 55%. RIGHT VENTRICLE Normal right ventricular size and systolic function. LEFT ATRIUM The left atrial size is normal. RIGHT ATRIUM The right atrial size is normal. ATRIAL SEPTUM Normal atrial septal thickness without atrial level shunting by limited color doppler interrogation. AORTA The aortic root and proximal ascending aorta are normal in size on limited imaging. MITRAL VALVE Trace mitral valve regurgitation. Calcification of the posterior mitral valve leaflet. AORTIC VALVE Aortic valve sclerosis is present. TRICUSPID VALVE There is trace tricuspid valve regurgitation. PULMONARY VALVE No pulmonary valve regurgitation or stenosis. VESSELS The inferior vena cava was not well visualized. PERICARDIUM No pericardial effusion. French Cobb MD, FACC, [facility] [place] (Electronically Signed) Final Date:05 June 2018 13:31
--- NOTE | 2018-06-05 13:55 | ECG ---
Date Performed: 06/04/2018 Time Performed: 08:17:11 PTAGE: 87 years EKG: SINUS BRADYCARDIA NONSPECIFIC T-WAVE ABNORMALITY BORDERLINE ECG Since the PREVIOUS TRACING , no significant change noted PREVIOUS TRACIN06/04/2018 02.01 DOCTOR: Josse Bains Interpretating Date/Time 06/05/2018 13:49:25
[2018-06-05 14:27] VITALS: PULSE 64
--- NOTE | 2018-06-05 15:06 | P.DS ---
Date of admission: 06/03/18 22:01 Primary care physician: Tata Laguerre MD Attending physician on discharge: Damion Vargas Anticipated date of discharge: 06/05/18 Brief History from admission: 87-year-old male with a past medical history significant for diabetes mellitus, dementia, ANTONI and hypertriglyceridemia presents to the emergency department for the evaluation of weakness and tachycardia. The patient's provides the history. She states that prior to dinner the patient was complaining of generalized weakness and he was unable to get up and walk to the dining [place]. She reports that he was tachycardic with a heart rate in the 140s, pale and weak. Patient denies any chest pain or shortness of breath. No abdominal pain. No nausea/vomiting/diarrhea. No focal neurologic deficits. No recent fever/chills. On arrival to the emergency department the patient was found to be in sinus tach with a heart rate of 140. He was given 1 dose of diltiazem x1 and was in normal sinus rhythm in the 60s at the time of our interview. Patient's initial troponin was 0.10, repeat 3.34. Repeat EKG showed normal sinus rhythm without ST segment elevations or depressions. Patient denies chest pain. In the emergency department the patient was weakly Hemoccult positive with brown stool. Patient update on day of discharge: Patient is doing well. Discussed with patient, daughter and patient's . Patient is currently doing well. No chest pain, shortness of breath. They would like to go home. DS: Medications - Discharge Medications Prescriptions: atorvastatin 20 mg PO DAILY #30 tab ticagrelor [Brilinta] 90 mg PO BID #60 tab DS: Summary Hospital Course: Mr. Rojas is a 87-year-old male with a past medical history significant for diabetes mellitus, dementia, ANTONI and hypertriglyceridemia presents to the emergency department for the evaluation of weakness and tachycardia. He did not have any specific chest pain but his troponins were elevated significantly. 0.10 admission and subsequently 3.34 and 4.79. Cardiology was consulted. Patient was also started on heparin drip. Cardiology recommended medical management. Patient's heart rate improved from 60s-70s range. Cardiology did not recommend any beta-traci. After discussing with cardiology on 06/05/2018 , we discontinued heparin drip. For medical management of non-STEMI, I discussed with patient's family regarding aspirin and Ticagrelor for 12 months. Cardiology also agreed with this plan. Patient is advised to follow up with outpatient cardiology - they prefer [facility] where patient's also goes. During this admission, there was some concern over what positive stool. Patient's hemoglobin is stable with hemoglobin around 12. No acute concerns. GI signed off. I went over the plan with patient and his . Patient is subsequently discharged home. - Time Spent with Patient Total time spent providing and/or coordinating discharge services: Less than 30 minutes Exam Vital signs: Vital Signs 06/04/18 16:05 06/04/18 18:00 06/04/18 18:20 Temperature 97.7 F Pulse Rate 65 68 Respiratory Rate 16 Blood Pressure 124/60 Pulse Oximetry 97 95 06/04/18 18:30 06/04/18 19:15 06/04/18 20:00 Temperature 97.6 F 98.5 F Pulse Rate 65 63 64 Respiratory Rate 16 18 Blood Pressure 111/59 L 95/52 L Pulse Oximetry 93 L 97 06/04/18 20:15 06/04/18 21:15 06/04/18 22:15 Temperature Pulse Rate 66 58 L 76 Respiratory Rate Blood Pressure Pulse Oximetry 06/04/18 23:15 06/05/18 00:00 06/05/18 01:00 Temperature 98.1 F Pulse Rate 63 69 61 Respiratory Rate 18 Blood Pressure 94/51 L Pulse Oximetry 94 L 06/05/18 02:00 06/05/18 03:00 06/05/18 04:00 Temperature 98.5 F Pulse Rate 62 60 65 Respiratory Rate 18 Blood Pressure 97/55 L Pulse Oximetry 91 L 06/05/18 05:00 06/05/18 06:19 06/05/18 07:00 Temperature Pulse Rate 61 60 68 Respiratory Rate Blood Pressure Pulse Oximetry 06/05/18 08:00 06/05/18 09:00 06/05/18 10:00 Temperature 97.8 F Pulse Rate 80 68 67 Respiratory Rate 16 Blood Pressure 96/54 L Pulse Oximetry 95 06/05/18 11:00 06/05/18 12:00 06/05/18 12:54 Temperature 97.9 F Pulse Rate 66 77 67 Respiratory Rate 16 Blood Pressure 106/59 L Pulse Oximetry 97 06/05/18 14:00 Temperature Pulse Rate 64 Respiratory Rate Blood Pressure Pulse Oximetry Intake & Output 06/04/18 06/05/18 06/05/18 18:59 06:59 18:59 Intake Total 240 / 240 1240 / 1240 250 / 250 Output Total 1750 / 1750 1000 / 1000 Balance -1510 / -1510 240 / 240 250 / 250 Weight 75 kg Intake: IV 1000 / 1000 250 / 250 Heparin/D5W 25,000 U/250 mL 25, 250 / 250 000 unit In 250 ml @ 900 UNITS/ HR 9 mls/hr IV.CONT TITRATE PRN Rx#:[id number] NS Inj 1,000 ML @ 70 mls/hr IV. 1000 / 1000 CONT .[id number] ROBERTA Rx#:[id number] Oral 240 / 240 240 / 240 Output: Urine 1750 / 1750 1000 / 1000 Other: # Voids 1 Date of Last Bowel Movement 06/04/18 06/05/18 06/04/18 # Bowel Movements 1 # Incontinent Bowel Movements 1 Narrative: GENERAL: Alert, NAD. SKIN: Warm and dry. HEAD: Normocephalic. EYES: No scleral icterus. No injection or drainage. NECK: Supple, trachea midline. No JVD or lymphadenopathy. CARDIOVASCULAR: Regular rate and rhythm without murmurs, gallops, or rubs. RESPIRATORY: Breath sounds equal bilaterally. No accessory muscle use. GASTROINTESTINAL: Abdomen soft, non-tender, nondistended. MUSCULOSKELETAL: No cyanosis, or edema. BACK: Nontender without obvious deformity. No CVA tenderness. Results Procedures completed during hospitalization: Echo 06/05/2018 Normal left ventricular size. Wall thickness is normal. The left ventricular systolic function is low normal with an estimated ejection fraction in the range of 50- 55%. Trace to mild mitral valve regurgitation. Calcification of the posterior mitral valve leaflet. Aortic valve sclerosis is present. There is trace tricuspid valve regurgitation. Labs on day of discharge: Labs from last 24 hours 06/05/18 06/05/18 06/05/18 12:02 10:53 07:47 WBC RBC Hgb Hct MCV MCH MCHC RDW Plt Count MPV Neut % (Auto) Lymph % (Auto) [place] % (Auto) Eos % (Auto) Baso % (Auto) Neut # (Auto) Lymph # (Auto) [place] # (Auto) Eos # (Auto) Baso # (Auto) WBC Differential Differential Comment APTT 72.0 H Sodium Potassium Chloride Carbon Dioxide Anion Gap BUN Creatinine Estimated GFR POC Glucose 180 H 98 Random Glucose Hemoglobin A1c Calcium Phosphorus Magnesium Total Bilirubin AST ALT Alkaline Phosphatase Total Protein Albumin Triglycerides Cholesterol LDL Cholesterol, Calc HDL Cholesterol Cholesterol/HDL Ratio TSH Free T4 06/05/18 06/05/18 06/05/18 05:12 02:40 02:40 WBC RBC Hgb Hct MCV MCH MCHC RDW Plt Count MPV Neut % (Auto) Lymph % (Auto) [place] % (Auto) Eos % (Auto) Baso % (Auto) Neut # (Auto) Lymph # (Auto) [place] # (Auto) Eos # (Auto) Baso # (Auto) WBC Differential Differential Comment APTT Sodium 143 Potassium 3.8 Chloride 110 H Carbon Dioxide 26.2 Anion Gap 7 BUN 15 Creatinine 1.32 H Estimated GFR 52 L POC Glucose 87 Random Glucose 61 L Hemoglobin A1c 6.8 H Calcium 8.0 L Phosphorus 3.2 Magnesium 1.9 Total Bilirubin 0.5 AST 35 ALT 24 Alkaline Phosphatase 62 Total Protein 6.7 Albumin 3.3 L Triglycerides 89 Cholesterol 117 L LDL Cholesterol, Calc 58 HDL Cholesterol 41.1 Cholesterol/HDL Ratio 2.84 TSH 9.200 H Free T4 0.83 06/05/18 06/05/18 06/04/18 02:40 02:40 20:17 WBC 11.5 H RBC 3.75 L Hgb 11.9 L Hct 35.4 L MCV 94.5 MCH 31.7 MCHC 33.6 RDW 13.8 Plt Count 184 MPV 8.8 Neut % (Auto) 68.8 Lymph % (Auto) 19.6 [place] % (Auto) 8.8 H Eos % (Auto) 2.4 Baso % (Auto) 0.4 Neut # (Auto) 7.9 H Lymph # (Auto) 2.3 [place] # (Auto) 1.0 H Eos # (Auto) 0.3 Baso # (Auto) 0.0 WBC Differential . Differential Comment Auto diff final APTT 79.7 H Sodium Potassium Chloride Carbon Dioxide Anion Gap BUN Creatinine Estimated GFR POC Glucose 179 H Random Glucose Hemoglobin A1c Calcium Phosphorus Magnesium Total Bilirubin AST ALT Alkaline Phosphatase Total Protein Albumin Triglycerides Cholesterol LDL Cholesterol, Calc HDL Cholesterol Cholesterol/HDL Ratio TSH Free T4 06/04/18 06/04/18 06/04/18 19:58 18:33 16:00 WBC RBC Hgb 11.7 L Hct 35.1 L MCV MCH MCHC RDW Plt Count MPV Neut % (Auto) Lymph % (Auto) [place] % (Auto) Eos % (Auto) Baso % (Auto) Neut # (Auto) Lymph # (Auto) [place] # (Auto) Eos # (Auto) Baso # (Auto) WBC Differential Differential Comment APTT 72.3 H D Sodium Potassium Chloride Carbon Dioxide Anion Gap BUN Creatinine Estimated GFR POC Glucose 192 H Random Glucose Hemoglobin A1c Calcium Phosphorus Magnesium Total Bilirubin AST ALT Alkaline Phosphatase Total Protein Albumin Triglycerides Cholesterol LDL Cholesterol, Calc HDL Cholesterol Cholesterol/HDL Ratio TSH Free T4 Preliminary micro results at discharge 06/03/18 18:35 Aerobic Blood Culture - Preliminary Blood - Peripheral No growth in 2 days Anaerobic Blood Culture - Preliminary No growth in 2 days 06/03/18 18:35 Aerobic Blood Culture - Preliminary Blood - Peripheral No growth in 2 days Anaerobic Blood Culture - Preliminary No growth in 2 days - Impressions ITS Impressions Chest X-Ray 06/03/18 18:38 CONCLUSION: No acute cardiopulmonary disease. Abdomen/Pelvis CT 06/03/18 19:02 CONCLUSION: 1. Unremarkable bowel gas pattern. 2. Status post cholecystectomy. Discharge Plan - Discharge Disposition Patient Disposition: Discharge Home - Discharge Condition Condition: Fair - Discharge Order Discharge Orders: Discharge Order (Routine); Ordered 06/05/18 Ordered By: Dmaion Vargas - Discharge Details Anticipated Discharge Date: 06/05/18 - Physicians Team Primary Care Provider: Tata Laguerre Attending Provider: Damion Vargas Other Providers: Mitul Caba MD ; Maricruz Cazares MD
== END 2018-06-05 15:05 | disposition home or self-care (01) ==
LOC: NEPC 18:06 → NEDA 22:01 → NEDH 06-04 05:00 → HCPC 06-04 16:10
PROVIDERS: ADMIT Hospitalist; ATTEND Hospitalist